=== PATIENT | female | born 1945 | race Caucasian/White ===

== ENCOUNTER 2017-02-19 21:26 | Observation (INO) | payer MEDICARE ==
[2017-02-19 21:27] VITALS: BMI 25.4
[2017-02-19] MEDS ORDERED: Sodium Chloride 0.9% 1,000 ML IV ONE (22:04)
--- NOTE | 2017-02-19 22:04 | C.PDOC ---
History Of Present Illness Patient presents with right sided chest wall pain and elevated blood sugar after eating dinner around 8pm. No f/c/v/v Also complaining of a dull throbbing headache Time Seen by Provider: 02/19/17 22:03 Chief Complaint (Nursing): High Blood Sugar History Per: Patient History/Exam Limitations: no limitations Onset/Duration Of Symptoms: Days Current Symptoms Are (Timing): Still Present Severity: Moderate Pain Scale Rating Of: 4 Current Diabetic Medications: Oral Medication Causative (Exacerbating) Factor(s): Other Associated Infectious Symptoms: Other (headache). denies: Cough, Urinary Frequency, Vomiting Treatment Prior To Provider Evaluation: None Recent travel outside of the [place]: No Additional History Per: Patient Past Medical History Reviewed: Historical Data, Nursing Documentation, Vital Signs Vital Signs: Last Vital Signs Temp 98.2 F 02/19/17 21:38 Pulse 71 02/20/17 02:07 Resp 20 02/20/17 02:07 BP 139/59 L 02/20/17 02:07 Pulse Ox 100 02/20/17 02:07 - Medical History PMH: HTN, Hypercholesterolemia Denies: Chronic Kidney Disease Family History: States: No Known Family Hx - Social History Hx Alcohol Use: No Hx Substance Use: No - Immunization History Hx Influenza Vaccination: Yes Hx Pneumococcal Vaccination: Yes Review Of Systems Constitutional: Positive for: Malaise. Negative for: Fever, Chills Eyes: Negative for: Redness ENT: Negative for: Throat Pain Cardiovascular: Positive for: Other (right chest wall pain, reproducible) Respiratory: Negative for: Shortness of Breath Gastrointestinal: Negative for: Nausea, Vomiting, Abdominal Pain Genitourinary: Negative for: Dysuria Musculoskeletal: Negative for: Back Pain Skin: Negative for: Rash, Lesions, Jaundice Neurological: Negative for: Weakness Psych: Negative for: Anxiety Physical Exam - Physical Exam Skin: Warm, Dry Head: Atraumatic Eye(s): bilateral: Normal Inspection Oral Mucosa: Dry Neck: Supple Chest: Symmetrical, Tenderness (right sided, reproducible, chest wall pain) Cardiovascular: Rhythm Regular Respiratory: No Rales, No Rhonchi, No Wheezing Gastrointestinal/Abdominal: Soft, No Tenderness, No Distention Back: Normal Inspection Extremity: Normal ROM Extremity: Bilateral: Atraumatic, Normal Color And Temperature Neurological/Psych: Oriented x3, Normal Speech, Normal Cognition Gait: Steady ED Course And Treatment - Laboratory Results Result Diagrams: 02/19/17 22:58 02/20/17 04:21 ECG: Interpreted By Me, Viewed By Me ECG Rhythm: Sinus Rhythm O2 Sat by Pulse Oximetry: 98 Pulse Ox Interpretation: Normal - Radiology CXR: Interpreted by Me, Viewed By Me CXR Interpretation: Yes: Infiltrates (left ligular area), Other (unchanged from 12/10/16). No: Fracture, Pnemothorax Progress Note: blood work, ivf Disposition Discussed With .: Jennifer Rizzo Comment: accepted the pt on his service and took over the care at 5:31AM Counseled Patient/Family Regarding: Studies Performed, Diagnosis - Disposition Disposition: HOSPITALIZED Disposition Time: 22:04 Condition: FAIR - POA Present On Arrival: Poor Glycemic Control - Clinical Impression Clinical Impression: Hyperglycemia, Diabetic nephropathy Decision To Admit - Pt Status Changed To: Hospital Disposition Of: Observation - . Bed Request Type: Regular Admitting Physician: Jennifer Rizzo Patient Diagnosis: Hyperglycemia, Diabetic nephropathy
--- NOTE | 2017-02-19 22:47 | CT ---
EXAM: CT Head Without Intravenous Contrast CLINICAL HISTORY: 71 years old, female; Condition or disease; Headache TECHNIQUE: Axial computed tomography images of the head/brain without intravenous contrast. This CT exam was performed using one or more of the following dose reduction techniques: automated exposure control, adjustment of the mA and/or kV according to patient size, and/or use of iterative reconstruction technique. COMPARISON: CT - HEAD W/O CONTRAST 12/10/2016 2:19:15 AM FINDINGS: Artifacts: There is mild motion artifact which slightly limits evaluation. Brain: There is mild prominence of ventricles and sulci, compatible with mild atrophy. There is mild diminished density of the white matter bilaterally, consistent with mild microangiopathy. There is no evidence of intracranial hemorrhage. No evidence of acute territorial infarction. No edema. Ventricles: See above. Bones/joints: Unremarkable. No acute fracture. Soft tissues: Unremarkable. Sinuses: Unremarkable as visualized. No acute sinusitis. Mastoid air cells: Unremarkable as visualized. No mastoid effusion. IMPRESSION: 1. No evidence for acute intracranial abnormality or displaced calvarial fracture. 2. Additional incidental and/or chronic findings as described.
[2017-02-19 23:00] LABS: BASO # 0.1 K/uL (0.0-0.2); BASO % 0.7 % (0.0-2.0); EOS # 0.2 K/uL (0.0-0.7); EOS % 1.8 % (0.0-4.0); HEMATOCRIT 31.3 % (34.0-47.0); LYMPH # 1.3 K/uL (1.0-4.3); MEAN CELL VOLUME 87.6 fL (81.0-99.0); MEAN CORPUSCULAR HEMOGLOBIN 28.5 pg (27.0-31.0); MEAN CORPUSCULAR HGB CONC 32.5 g/dL (33.0-37.0); MEAN PLATELET VOLUME 9.8 fL (7.2-11.7); MONO # 0.7 K/uL (0.0-0.8); MONO % 6.3 % (0.0-10.0); RED CELL DISTRIBUTION WIDTH 12.8 % (11.5-14.5); WHITE BLOOD COUNT 10.9 K/uL (4.8-10.8)
[2017-02-19 23:05] LABS: VENOUS BLOOD GAS BASE EXCESS -4.8 mmol/L (0.0-2.0); VENOUS BLOOD GAS PCO2 44 mmHg (40-60)
[2017-02-19 23:09] LABS: CHLORIDE 101 mmol/L (98-107); POTASSIUM 5.1 mmol/L (3.6-5.2); SODIUM 134 mmol/L (132-148)
[2017-02-19 23:11] LABS: BILIRUBIN,TOTAL 0.8 mg/dL (0.2-1.3); CARBON DIOXIDE 19 mmol/L (22-30); GFR AFRICAN-AMERICAN 32
[2017-02-19 23:12] LABS: ALKALINE PHOSPHATASE 81 U/L (38-126); ALT/SGPT 31 U/L (9-52); AST/SGOT 48 U/L (14-36); BLOOD UREA NITROGEN 36 mg/dL (7-17); CALCIUM 8.2 mg/dl (8.6-10.4); TOTAL PROTEIN 7.8 g/dL (6.3-8.3)
[2017-02-19 23:26] LABS: TRANSITIONAL EPITHIAL < 1 /hpf (0-3); URINE BACTERIA RARE (<OCC); URINE BILIRUBIN NEGATIVE (NEGATIVE); URINE BLOOD NEGATIVE (NEGATIVE); URINE COLOR Straw (YELLOW); URINE GLUCOSE (UA) 3+ mg/dL (Normal); URINE KETONE NEGATIVE (NEGATIVE); URINE LEUKOCYTE ESTERASE NEG Leu/uL (Negative); URINE PROTEIN NEGATIVE (NEGATIVE); URINE UROBILINOGEN NORMAL mg/dL (0.2-1.0); WBC URINE < 1 /hpf (0-5)
[2017-02-19 23:27] LABS: GLUCOSE,RANDOM 597 mg/dL (65-105)
[2017-02-20] MEDS: Insulin Human Regular 100 UNIT in Sodium Chloride 0.9% 99 ML IV SCH ×2 (00:12→19:58)
[2017-02-20 02:07] VITALS: RESP 20
[2017-02-20] MEDS ORDERED: Sodium Chloride 0.9% 1,000 ML IV ONE (02:11)
[2017-02-20] MEDS ORDERED: (Novolin R) Insulin Human Regular 100 units/ml vial IV ONE ×2 (04:29→05:01)
[2017-02-20] MEDS ORDERED: (Novolin R) Insulin Human Regular 100 units/ml vial ONE (04:29)
[2017-02-20 04:32] LABS: POTASSIUM 4.5 mmol/L (3.6-5.2)
[2017-02-20 04:35] LABS: ALB/GLOB RATIO 0.9 (1.0-2.1); BILIRUBIN,TOTAL 0.9 mg/dL (0.2-1.3); TOTAL PROTEIN 6.4 g/dL (6.3-8.3)
[2017-02-20 04:36] LABS: CALCIUM 6.5 mg/dl (8.6-10.4)
[2017-02-20] MEDS: (Novolin R) Insulin Human Regular 100 units/ml vial SC SCH ×4 (08:20→22:18)
--- NOTE | 2017-02-20 09:07 | RAD ---
HISTORY: Diabetic COMPARISON: Chest x-ray performed 12/10/16 TECHNIQUE: Chest, one view. FINDINGS: LUNGS: Interstitial prominence may reflect infection or edema superimposed on chronic interstitial changes. Please note that chest x-ray has limited sensitivity for the detection of pulmonary masses. PLEURA: Trace bilateral pleural effusions. No definite pneumothorax . CARDIOVASCULAR: Cardiomegaly. OSSEOUS STRUCTURES: Degenerative changes. VISUALIZED UPPER ABDOMEN: Unremarkable. OTHER FINDINGS: None. IMPRESSION: Interstitial prominence may reflect infection or edema superimposed on chronic interstitial changes. Trace bilateral pleural effusions. Cardiomegaly.
[2017-02-20] MEDS ORDERED: (Lantus) Insulin Glargine, Recombinant SC SCH (10:00)
[2017-02-20 12:16] LABS: AMYLASE 106 U/L (30-110); CHOLESTEROL 95 mg/dL (0-199)
[2017-02-20 12:52] LABS: THYROID STIMULATING HORMONE 1.59 mIU/L (0.46-4.68)
--- NOTE | 2017-02-20 16:58 | CP.PCM.HP ---
History of Present Illness - History of Present Illness History of Present Illness: A 71 year old female with diabetes came to ER for right side chest wall pain and extreme general weakness. Her glucose was over 600 at ER. She had an intravenous insulin drip. She was admitted for further diabetic care for uncontrolled diabetes. She denies headache, abdominal pain,nausea, vomiting, cough, diarrhea, dysuria, fever or chills Present on Admission - Present on Admission Any Indicators Present on Admission: No History of DVT/PE: No History of Uncontrolled Diabetes: Yes Urinary Catheter: No Decubitus Ulcer Present: No Review of Systems - Constitutional Constitutional: As Per HPI, Headache - EENT Eyes: As Per HPI Ears: As Per HPI Nose/Mouth/Throat: As Per HPI - Breasts Breasts: As Per HPI - Cardiovascular Cardiovascular: As Per HPI - Respiratory Respiratory: As Per HPI - Gastrointestinal Gastrointestinal: As Per HPI - Genitourinary Genitourinary: As Per HPI - Reproductive: Female Reproductive:Female: As Per HPI - Menstruation Menstruation: As Per HPI, Cycle Variable - Musculoskeletal Musculoskeletal: As Per HPI - Neurological Neurological: As Per HPI Past Patient History - Infectious Disease Hx of Infectious Diseases: None - Past Medical History & Family History Past Medical History?: Yes - Past Social History Smoking Status: Never Smoked - CARDIAC Hx Cardiac Disorders: Yes Hx Angina: No Hx Atrial Fibrillation: No Hx Cardia Arrhythmia: No Hx Circulatory Problems: No Hx Congestive Heart Failure: No Hx Hypercholesterolemia: Yes Hx Hypertension: Yes - PULMONARY Hx Respiratory Disorders: No - NEUROLOGICAL HX Cerebrovascular Accident: Yes (2016) - HEENT Hx HEENT Problems: No - RENAL Hx Chronic Kidney Disease: No - ENDOCRINE/METABOLIC Hx Endocrine Disorders: Yes Hx Diabetes Mellitus Type 2: Yes - HEMATOLOGICAL/ONCOLOGICAL Hx Blood Disorders: No - INTEGUMENTARY Hx Dermatological Problems: No - MUSCULOSKELETAL/RHEUMATOLOGICAL Hx Falls: No - GASTROINTESTINAL Hx Gastrointestinal Disorders: No - GENITOURINARY/GYNECOLOGICAL Hx Genitourinary Disorders: No - PSYCHIATRIC Hx Substance Use: No - SURGICAL HISTORY Hx Surgeries: Yes Hx Section: Yes Other/Comment: Lung biopsy - ANESTHESIA Hx Anesthesia: Yes Hx Anesthesia Reactions: No Hx Malignant Hyperthermia: No Has any member of the family had a problem w/ anesthesia?: No Meds Allergies/Adverse Reactions: Allergies Allergy/AdvReac Type Severity Reaction Status Date / Time No Known Allergies Allergy Verified 02/19/17 21:42 Physical Exam - Constitutional Appears: No Acute Distress - Head Exam Head Exam: ATRAUMATIC, NORMAL INSPECTION, NORMOCEPHALIC - Respiratory Exam Respiratory Exam: Rales, NORMAL BREATHING PATTERN - Cardiovascular Exam Cardiovascular Exam: REGULAR RHYTHM, +S1, +S2, Systolic Murmur - GI/Abdominal Exam GI & Abdominal Exam: Normal Bowel Sounds - Extremities Exam Extremities exam: Positive for: normal inspection Results - Vital Signs Recent Vital Signs: Last Vital Signs Temp 98.5 F 02/20/17 15:47 Pulse 90 02/20/17 15:47 Resp 20 02/20/17 15:47 BP 123/57 L 02/20/17 15:47 Pulse Ox 98 02/20/17 15:47 - Labs Result Diagrams: 02/19/17 22:58 02/20/17 04:21 Labs: Laboratory Results - last 24 hr 02/20/17 02/20/17 02/20/17 06:51 07:17 11:19 POC Glucose (mg/dL) 40 L 82 233 H Triglycerides Cholesterol LDL Cholesterol Direct HDL Cholesterol Amylase TSH 3rd Generation 02/20/17 02/20/17 11:55 15:36 POC Glucose (mg/dL) 329 H Triglycerides 75 D Cholesterol 95 LDL Cholesterol Direct < 30 HDL Cholesterol 64 Amylase 106 TSH 3rd Generation 1.59 Assessment & Plan - Assessment and Plan (Free Text) Assessment: A 71 year old female with history of interstitial lung disease and diabetes came for right chest wall pain and general weakness. not likely DKA, not likely hyperosmolar nonketoic coma, Uncontrolled and brittle diabetes Plan: diabetic care she had insulin intravenous drip at ER hypoglycemia this morning held lantus insulin continue insulin sliding scale frequent previous admissions - Date & Time Date: 02/20/17 Time: 16:59 Decision To Admit - Pt Status Changed To: Hospital Disposition Of: Inpatient - Admit Certification Admit to Inpatient:: After my assessment, the patient will require hospitalization for at least two midnights. This is because of the severity of symptoms shown, intensity of services needed, and/or the medical risk in this patient being treated as an outpatient. - InPatient: Physician Admission Certification:: as ordered - . Bed Request Type: Regular Admitting Physician: Jennifer Rizzo
[2017-02-20] MEDS ORDERED: Sodium Chloride 0.9% 1,000 ML IV SCH (17:00)
[2017-02-21] MEDS: (Novolin R) Insulin Human Regular 100 units/ml vial SC SCH ×2 (07:55→12:05)
[2017-02-21] MEDS ORDERED: (Lantus) Insulin Glargine, Recombinant SC ONE (11:29)
--- NOTE | 2017-02-21 12:19 | CP.PCM.PN ---
Subjective - Date & Time of Evaluation Date of Evaluation: 02/21/17 Time of Evaluation: 12:16 - Subjective Subjective: feels tired mild headache no nausea, no cough, no abdominal pain high finger stick sugar this morning, 307 at 4 AM and 443 at 8 AM no more chest pain Objective - Vital Signs/Intake and Output Vital Signs (last 24 hours): Temp Pulse Resp BP Pulse Ox 97.8 F 80 20 138/65 93 L 02/21/17 08:04 02/21/17 08:04 02/21/17 08:04 02/21/17 08:04 02/21/17 08:04 Intake and Output: 02/21/17 02/21/17 06:59 18:59 Intake Total 500 Balance 500 - Medications Medications: Current Medications Acetaminophen (Tylenol 325mg Tab) 650 mg PO Q6 PRN PRN Reason: Pain, moderate (4-7) Aspirin (Aspirin Chewable) 81 mg PO DAILY [facility] Last Admin: 02/21/17 09:58 Dose: 81 mg Gabapentin (Neurontin) 200 mg PO DAILY [facility] Last Admin: 02/21/17 09:58 Dose: 200 mg Heparin Sodium (Porcine) (Heparin) 5,000 units SC Q12 [facility] Last Admin: 02/21/17 09:58 Dose: 5,000 units Insulin Glargine (Lantus) 10 unit SC BID [facility] Last Admin: 02/20/17 09:14 Dose: Not Given Insulin Human Regular (Novolin R) 0 unit SC ACHS [facility] PRN Reason: Protocol Last Admin: 02/21/17 12:05 Dose: 10 unit Lisinopril (Zestril) 20 mg PO DAILY [facility] Last Admin: 02/21/17 09:58 Dose: 20 mg Rosuvastatin Calcium (Crestor) 20 mg PO HS [facility] Last Admin: 02/20/17 22:15 Dose: 20 mg - Constitutional Appears: No Acute Distress - Respiratory Exam Respiratory Exam: Clear to Ausculation Bilateral, NORMAL BREATHING PATTERN - Cardiovascular Exam Cardiovascular Exam: REGULAR RHYTHM, +S1, +S2 - GI/Abdominal Exam GI & Abdominal Exam: Normal Bowel Sounds - Extremities Exam Extremities Exam: Normal Inspection Assessment and Plan - Assessment and Plan (Free Text) Assessment: uncontrolled diabetes stable vitals came with right side chest pain patient is on observation status now poor family support at home because her daughter is too busy for belt maker helper history of interstitial lung disease Plan: resume lantus insulin discharge pt home follow up as an out patient talked to her daughter on the phone She said that she had called 911 because her mother had right side chest pain. she refused a blood test this morning.
[2017-02-21 15:12] VITALS: BP 135/74; PULSE 79; TEMP 98; O2SAT 95
--- NOTE | 2017-02-24 08:55 | CARD ---
APPROVED REPORT EKG Measurement Heart [id number] <Conclusion> Sinus rhythm with 1st degree AV block Possible Left atrial enlargement Nonspecific T wave abnormality lOW VOLTAGE INFERIOR AND LATERAL LEADS Abnormal ECG
== END 2017-02-21 16:49 | disposition home or self-care (01) ==
LOC: C.ER 21:26 → C.5T 02-20 05:41
PROVIDERS: ADMIT Internal Medicine; ATTEND Internal Medicine
DX: E11.65 Type 2 diabetes mellitus with hyperglycemia (principal); E78.00 Pure hypercholesterolemia, unspecified; I10 Essential (primary) hypertension; Z79.4 Long term (current) use of insulin
CPT/HCPCS: 36415; 70450; 71010; 80053; 80061; 81001; 82009; 82150; 82803; 82948; 83036; 83690; 84443; 84484; 85025; 96360; 97116; 97162; 99285; G0378; G8978; G8979; J1644; J7040

== ENCOUNTER 2017-04-04 19:57 | Inpatient (IN) | payer MEDICARE ==
[2017-04-04 19:58] VITALS: BMI 25.4
[2017-04-04] MEDS ORDERED: Sodium Chloride 0.9% 1,000 ML IV STA (20:39)
--- NOTE | 2017-04-04 20:48 | C.PDOC ---
History Of Present Illness 72 year old female was brought to the ED by EMS with complaints of generalized weakness and loss of appetite for approximately five to six days. Patient's family member notes the patient has had fluctuating blood sugar finger stick readings. Patient denies any chest pain, SOB, cough, dysuria, or pain. PMD So Time Seen by Provider: 04/04/17 20:12 Chief Complaint (Nursing): Medical Clearance History Per: Patient, Family History/Exam Limitations: no limitations Onset/Duration Of Symptoms: Days (5-6 days ) Current Symptoms Are (Timing): Still Present Reports Recently: Hospitalized (patient's family member states patient has been in the hospital about 5 times in the last month) Recent travel outside of the [place]: No Additional History Per: EMS Past Medical History Reviewed: Historical Data, Nursing Documentation, Vital Signs Vital Signs: Last Vital Signs Temp 98.2 F 04/04/17 23:45 Pulse 97 H 04/04/17 23:45 Resp 20 04/04/17 23:45 BP 127/70 04/04/17 23:45 Pulse Ox 97 04/04/17 23:45 - Medical History PMH: HTN, Hypercholesterolemia Family History: States: Unknown Family Hx - Social History Hx Alcohol Use: No Hx Substance Use: No - Immunization History Hx Influenza Vaccination: Yes Hx Pneumococcal Vaccination: Yes Review Of Systems Constitutional: Positive for: Weakness (generalized weakness ), Other (loss of appetite ). Negative for: Fever, Chills, Sweats Cardiovascular: Negative for: Chest Pain, Palpitations Respiratory: Negative for: Cough, Shortness of Breath Gastrointestinal: Negative for: Nausea, Vomiting, Abdominal Pain, Diarrhea Genitourinary: Negative for: Dysuria Physical Exam - Physical Exam Additional Physical Exam Comments: Constitutional: No acute distress. Head: Normocephalic. Atraumatic. Eyes: PERRL. ENT: Moist mucous membranes. Neck: Supple. Cardiovascular: Regular rate. Radial pulse 2+ bilaterally. Chest: No tenderness. Respiratory: Clear to auscultation bilaterally. GI: Soft. Nontender. Nondistended. Back: No CVA tenderness. Musculoskeletal: No tenderness or swelling of extremities. Skin: No rash. Neurologic: Alert, no focal deficit. ED Course And Treatment - Laboratory Results Result Diagrams: 04/04/17 20:48 04/04/17 20:48 O2 Sat by Pulse Oximetry: 97 (room air ) Medical Decision Making Medical Decision Making: Patient found to be hyperkalemic 6.1 with acute renal insuficiency. EKG checked STAT which shows 1st degree AV block, no peaked T waves. Narrow QRS. Patient's last two EKGs both checked, both times with 1st degree AV block, not hyperkalemic at those times. Will treat with cocktail, no indication for calcium at this time. Disposition - Disposition Disposition: HOSPITALIZED Disposition Time: 21:30 Condition: FAIR - Clinical Impression Clinical Impression: Acute renal insufficiency, Hyperkalemia - Scribe Statement The provider has reviewed the documentation as recorded by the Scribe Provider Attestation: Arabella Ames All medical record entries made by the Scribe were at my direction and personally dictated by me. I have reviewed the chart and agree that the record accurately reflects my personal performance of the history, physical exam, medical decision making, and the department course for this patient. I have also personally directed, reviewed, and agree with the discharge instructions and disposition.
[2017-04-04 20:53] LABS: BASO % 0.4 % (0.0-2.0); EOS # 0.3 K/uL (0.0-0.7); EOS % 3.7 % (0.0-4.0); HEMATOCRIT 34.9 % (34.0-47.0); LYMPH # 2.3 K/uL (1.0-4.3); LYMPH % 24.8 % (20.0-40.0); MEAN CORPUSCULAR HEMOGLOBIN 27.1 pg (27.0-31.0); MEAN CORPUSCULAR HGB CONC 31.7 g/dL (33.0-37.0); MEAN PLATELET VOLUME 10.1 fL (7.2-11.7); MONO # 0.6 K/uL (0.0-0.8); MONO % 6.8 % (0.0-10.0); RED CELL DISTRIBUTION WIDTH 13.2 % (11.5-14.5); WHITE BLOOD COUNT 9.4 K/uL (4.8-10.8)
[2017-04-04 20:55] LABS: MEAN CELL VOLUME 85.4 fL (81.0-99.0)
[2017-04-04 21:03] LABS: CHLORIDE 107 mmol/L (98-107); SODIUM 140 mmol/L (132-148)
[2017-04-04 21:05] LABS: ALKALINE PHOSPHATASE 92 U/L (38-126); AST/SGOT 30 U/L (14-36); BILIRUBIN,TOTAL 0.4 mg/dL (0.2-1.3); CARBON DIOXIDE 21 mmol/L (22-30); GFR AFRICAN-AMERICAN 16
[2017-04-04 21:06] LABS: ALT/SGPT 17 U/L (9-52); BLOOD UREA NITROGEN 64 mg/dL (7-17); GLUCOSE,RANDOM 168 mg/dL (65-105); TOTAL PROTEIN 7.8 g/dL (6.3-8.3)
[2017-04-04 21:08] LABS: POTASSIUM 6.2 mmol/L (3.6-5.2)
[2017-04-04 21:10] LABS: URINE BILIRUBIN NEGATIVE (NEGATIVE); URINE BLOOD NEGATIVE (NEGATIVE); URINE COLOR YELLOW (YELLOW); URINE GLUCOSE (UA) 1+ mg/dL (Normal); URINE KETONE NEGATIVE (NEGATIVE)
[2017-04-04 21:11] LABS: RBC URINE 2 /hpf (0-3); URINE LEUKOCYTE ESTERASE 1+ Leu/uL (Negative); URINE PROTEIN NEGATIVE (NEGATIVE); URINE UROBILINOGEN Normal mg/dL (0.2-1.0); WBC URINE 24 /hpf (0-5)
[2017-04-04] MEDS ORDERED: Albuterol 0.083% Inhal Sol (2.5 mg/3 mL) UD INH STA (21:13)
[2017-04-04] MEDS ORDERED: Sodium Bicarbonate (8.4%) 50 Meq Syringe IVP ONE (21:14)
[2017-04-04] MEDS ORDERED: (Novolin R) Insulin Human Regular 100 units/ml vial IV ONE (21:14)
[2017-04-04] MEDS ORDERED: Dextrose 50% SYRINGE Inj (50 ml) IV STA (21:14)
[2017-04-04 21:16] LABS: DRAW SITE VENOUS; VENOUS BLOOD GAS BASE EXCESS -2.3 mmol/L (0.0-2.0); VENOUS BLOOD GAS PCO2 52 mmHg (40-60); VENOUS BLOOD PH 7.29 (7.32-7.43)
[2017-04-04] MEDS ORDERED: Dextrose 50% SYRINGE Inj (50 ml) ONE (21:30)
[2017-04-04] MEDS ORDERED: (Novolin R) Insulin Human Regular 100 units/ml vial ONE (21:30)
[2017-04-04] MEDS ORDERED: Sodium Chloride 0.9% 1,000 ML ONE (21:31)
[2017-04-04] MEDS ORDERED: Sodium Bicarbonate (8.4%) 50 Meq Syringe ONE (21:31)
[2017-04-04] MEDS ORDERED: Albuterol 0.083% Inhal Sol (2.5 mg/3 mL) UD ONE (21:41)
[2017-04-04] MEDS ORDERED: Ciprofloxacin 400mg/200ml D5W 400 MG/200 ML BAG IVPB STA (22:41)
[2017-04-04] MEDS: Sodium Chloride 0.9% 1,000 ML IV SCH (23:45)
[2017-04-05 08:00] LABS: HEMATOCRIT 33.8 % (34.0-47.0); MEAN CELL VOLUME 84.8 fL (81.0-99.0); MEAN CORPUSCULAR HEMOGLOBIN 27.5 pg (27.0-31.0); MEAN CORPUSCULAR HGB CONC 32.4 g/dL (33.0-37.0); MEAN PLATELET VOLUME 9.7 fL (7.2-11.7); RED CELL DISTRIBUTION WIDTH 13.2 % (11.5-14.5); WHITE BLOOD COUNT 11.6 K/uL (4.8-10.8)
[2017-04-05 08:04] LABS: POTASSIUM 4.8 mmol/L (3.6-5.2)
[2017-04-05 08:06] LABS: BILIRUBIN,TOTAL 0.5 mg/dL (0.2-1.3); CALCIUM 8.9 mg/dl (8.6-10.4); TOTAL PROTEIN 7.5 g/dL (6.3-8.3)
[2017-04-05] MEDS: (Novolog) Insulin Aspart, Recombinant 100 u/ml 10 ml vial SC SCH ×4 (08:15→22:01)
--- NOTE | 2017-04-05 08:23 | CP.PCM.HP ---
History of Present Illness - History of Present Illness History of Present Illness: A 72 year old female, well known to me with a history of diabetes, interstitial lung fibrosis came to ER on 04/04/17 for general weakness and decreased appetite for about five days. Reportedly, her glucose at home fluctuates lately. There was no shortness of breath, fever, chills, or chest pain or diarrhea. At the ER, she was found to have high creatinine and high potassium. DKA was ruled out. She was given iv cipro, iv bicarbonate and insulin. Present on Admission - Present on Admission Any Indicators Present on Admission: No History of DVT/PE: No History of Uncontrolled Diabetes: Yes Urinary Catheter: No Decubitus Ulcer Present: No Review of Systems - Constitutional Constitutional: Anorexia, Lethargy, Malaise - Cardiovascular Cardiovascular: As Per HPI - Respiratory Respiratory: As Per HPI - Genitourinary Genitourinary: As Per HPI Past Patient History - Infectious Disease Hx of Infectious Diseases: None - Past Medical History & Family History Past Medical History?: Yes - Past Social History Smoking Status: Never Smoked - CARDIAC Hx Cardiac Disorders: Yes Hx Hypercholesterolemia: Yes Hx Hypertension: Yes - PULMONARY Hx Respiratory Disorders: No - NEUROLOGICAL Hx Neurological Disorder: Yes HX Cerebrovascular Accident: Yes (2016) - HEENT Hx HEENT Problems: No - RENAL Hx Chronic Kidney Disease: No - ENDOCRINE/METABOLIC Hx Endocrine Disorders: Yes Hx Diabetes Mellitus Type 2: Yes - HEMATOLOGICAL/ONCOLOGICAL Hx Blood Disorders: No - INTEGUMENTARY Hx Dermatological Problems: No - MUSCULOSKELETAL/RHEUMATOLOGICAL Hx Musculoskeletal Disorders: No Hx Falls: No - GASTROINTESTINAL Hx Gastrointestinal Disorders: No - GENITOURINARY/GYNECOLOGICAL Hx Genitourinary Disorders: No - PSYCHIATRIC Hx Psychophysiologic Disorder: No Hx Substance Use: No - SURGICAL HISTORY Hx Surgeries: Yes Hx Section: Yes Other/Comment: Lung biopsy - ANESTHESIA Hx Anesthesia: Yes Hx Anesthesia Reactions: No Hx Malignant Hyperthermia: No Meds Allergies/Adverse Reactions: Allergies Allergy/AdvReac Type Severity Reaction Status Date / Time No Known Allergies Allergy Verified 04/04/17 20:07 Physical Exam - Constitutional Appears: No Acute Distress - Head Exam Head Exam: ATRAUMATIC - Neck Exam Neck exam: Positive for: Full Rom - Respiratory Exam Respiratory Exam: Rales (fine crackles at right base), NORMAL BREATHING PATTERN - Cardiovascular Exam Cardiovascular Exam: REGULAR RHYTHM - GI/Abdominal Exam GI & Abdominal Exam: Normal Bowel Sounds, Soft - Extremities Exam Extremities exam: Positive for: normal inspection Results - Vital Signs Recent Vital Signs: Last Vital Signs Temp 97.8 F 04/05/17 04:00 Pulse 92 H 04/05/17 04:13 Resp 20 04/05/17 04:00 BP 126/65 04/05/17 04:00 Pulse Ox 98 04/05/17 04:00 - Labs Result Diagrams: 04/05/17 07:48 04/05/17 07:48 Labs: Laboratory Results - last 24 hr 04/05/17 04/05/17 04/05/17 02:19 06:07 07:48 WBC 11.6 H RBC 3.98 Hgb 11.0 Hct 33.8 L MCV 84.8 MCH 27.5 MCHC 32.4 L RDW 13.2 Plt Count 209 MPV 9.7 Sodium Potassium Chloride Carbon Dioxide Anion Gap BUN Creatinine Est GFR ( Amer) Est GFR (Non-Af Amer) POC Glucose (mg/dL) 260 H 221 H Random Glucose Calcium Total Bilirubin AST ALT Alkaline Phosphatase Total Protein Albumin Globulin Albumin/Globulin Ratio 04/05/17 07:48 WBC RBC Hgb Hct MCV MCH MCHC RDW Plt Count MPV Sodium 143 Potassium 4.8 Chloride 108 H Carbon Dioxide 23 Anion Gap 17 BUN 49 H Creatinine 2.6 H Est GFR ( Amer) 22 Est GFR (Non-Af Amer) 18 POC Glucose (mg/dL) Random Glucose 168 H Calcium 8.9 Total Bilirubin 0.5 AST 30 ALT 12 Alkaline Phosphatase 92 Total Protein 7.5 Albumin 3.8 Globulin 3.7 Albumin/Globulin Ratio 1.0 Assessment & Plan - Assessment and Plan (Free Text) Assessment: acute renal insufficiency with hyperkalemia uncontrolled diabetes R/O urinary tract infection Plan: iv hydration control diabetes with a sliding scale follow up kidney function continue iv antibiotics until cleared - Date & Time Date: 04/05/17 Time: 08:26
[2017-04-05] MEDS ORDERED: (Lantus) Insulin Glargine, Recombinant SC SCH (10:00)
--- NOTE | 2017-04-05 10:25 | RAD ---
HISTORY: weakness COMPARISON: No prior. FINDINGS: LUNGS: Prominent diffuse increased interstitial lung markings with patchy increased consolidative changes the left mid to lower lung zone as well as the right upper to mid lung zone. PLEURA: As above. CARDIOVASCULAR: Cardiomegaly. OSSEOUS STRUCTURES: No significant abnormalities. VISUALIZED UPPER ABDOMEN: Normal. OTHER FINDINGS: None. IMPRESSION: Prominent diffuse increased interstitial lung markings with patchy increased consolidative changes the left mid to lower lung zone as well as the right upper to mid lung zone.
--- NOTE | 2017-04-05 18:27 | CARD ---
APPROVED REPORT EKG Measurement Heart [id number] <Conclusion> Sinus rhythm with 1st degree AV block Otherwise normal ECG
[2017-04-05] MEDS: (Lantus) Insulin Glargine, Recombinant SC SCH (21:57)
[2017-04-06] MEDS: Sodium Chloride 0.9% 1,000 ML IV SCH ×2 (00:03→12:43)
--- NOTE | 2017-04-06 00:07 | CT ---
EXAM: CT Head Without Intravenous Contrast CLINICAL HISTORY: 72 years old, female; Signs and symptoms; Altered mental status/memory loss; Additional info: AMS TECHNIQUE: Axial computed tomography images of the head/brain without intravenous contrast. This CT exam was performed using one or more of the following dose reduction techniques: automated exposure control, adjustment of the mA and/or kV according to patient size, and/or use of iterative reconstruction technique. EXAM DATE/TIME: 04/05/2017 6:29 PM COMPARISON: CT - HEAD W/O CONTRAST 02/19/2017 10:29:34 PM FINDINGS: Brain: There is dilatation of sulci gyri and ventricles. There is no midline shift. There is decreased attenuation in periventricular white matter. There are no focal masses. There are no focal hemorrhages. Salazar-white differentiation is visualized. Ventricles: See above. Bones: Cranial vault is intact. Soft tissues: unremarkable Sinuses: There is no acute sinusitis. Ears and mastoids: Middle ears and mastoids are unremarkable. Orbits: Orbital contents are unremarkable. IMPRESSION: Atrophy and small vessel disease, no acute intracranial abnormality
[2017-04-06] MEDS: (Novolog) Insulin Aspart, Recombinant 100 u/ml 10 ml vial SC SCH ×4 (07:45→21:43)
[2017-04-06 08:29] LABS: BASO # 0.1 K/uL (0.0-0.2); BASO % 0.7 % (0.0-2.0); EOS # 0.6 K/uL (0.0-0.7); EOS % 5.3 % (0.0-4.0); HEMATOCRIT 34.7 % (34.0-47.0); LYMPH # 3.6 K/uL (1.0-4.3); LYMPH % 33.8 % (20.0-40.0); MEAN CELL VOLUME 84.5 fL (81.0-99.0); MEAN CORPUSCULAR HEMOGLOBIN 27.4 pg (27.0-31.0); MEAN CORPUSCULAR HGB CONC 32.4 g/dL (33.0-37.0); MEAN PLATELET VOLUME 9.6 fL (7.2-11.7); MONO # 0.9 K/uL (0.0-0.8); MONO % 8.8 % (0.0-10.0); RED CELL DISTRIBUTION WIDTH 13.2 % (11.5-14.5); WHITE BLOOD COUNT 10.8 K/uL (4.8-10.8)
--- NOTE | 2017-04-06 08:42 | CP.PCM.PN ---
Subjective - Date & Time of Evaluation Date of Evaluation: 04/06/17 Time of Evaluation: 08:39 - Subjective Subjective: chest pain she was confused yesterday. She pulled out iv yesterday. Objective - Vital Signs/Intake and Output Vital Signs (last 24 hours): Temp Pulse Resp BP Pulse Ox 98.2 F 87 18 145/68 99 04/06/17 07:00 04/06/17 07:00 04/06/17 07:00 04/06/17 07:00 04/06/17 07:00 Intake and Output: 04/06/17 04/06/17 06:59 18:59 Intake Total 840 Balance 840 - Medications Medications: Current Medications Acetaminophen (Tylenol 325mg Tab) 650 mg PO Q6 PRN PRN Reason: pain Aspirin (Aspirin Chewable) 81 mg PO DAILY [facility] Last Admin: 04/05/17 09:35 Dose: 81 mg Haloperidol Lactate (Haldol) 1 mg IM Q4 PRN PRN Reason: Agitation Last Admin: 04/05/17 19:27 Dose: 1 mg Heparin Sodium (Porcine) (Heparin) 5,000 units SC Q8 [facility] Last Admin: 04/06/17 05:46 Dose: 5,000 units Sodium Chloride (Sodium Chloride 0.9%) 1,000 mls @ 80 mls/hr IV .[id number] [facility] Last Admin: 04/06/17 00:03 Dose: 80 mls/hr Ciprofloxacin (Cipro 400mg/200ml Dsw) 400 mg in 200 mls @ 133 mls/hr IVPB Q24H [facility] Insulin Aspart (Novolog) 0 unit SC ACHS [facility] PRN Reason: Protocol Last Admin: 04/06/17 07:45 Dose: Not Given Insulin Glargine (Lantus) 20 unit SC Q12 [facility] Last Admin: 04/05/17 21:57 Dose: 20 units - Labs Labs: 04/06/17 08:23 04/05/17 07:48 PT 11.2 SECONDS (9.7-12.2) 04/04/17 20:48 INR 1.0 04/04/17 20:48 APTT 38 SECONDS (21-34) H 04/04/17 20:48 - Constitutional Appears: Non-toxic - Head Exam Head Exam: NORMAL INSPECTION - Respiratory Exam Respiratory Exam: NORMAL BREATHING PATTERN - Cardiovascular Exam Cardiovascular Exam: REGULAR RHYTHM - GI/Abdominal Exam GI & Abdominal Exam: Soft Assessment and Plan - Assessment and Plan (Free Text) Assessment: uncontrolled diabetes general weakness renal insufficiency acute vs. chronic mental confusion R/O delirium Plan: change lantus from 20 units every 24 hours to once a day. she had a hypoglycemia in the morning. neurology consult pending PT evaluation follow up labs
[2017-04-06 08:57] LABS: POTASSIUM 4.6 mmol/L (3.6-5.2)
[2017-04-06 09:01] LABS: CALCIUM 9.4 mg/dl (8.6-10.4)
[2017-04-06] MEDS: (Lantus) Insulin Glargine, Recombinant SC SCH (09:21)
[2017-04-06] MEDS: Ciprofloxacin 400mg/200ml D5W 400 MG/200 ML BAG IVPB SCH (09:23)
[2017-04-06 10:41] LABS: T4 9.97 ug/dL (5.5-11.0)
[2017-04-06 10:55] LABS: THYROID STIMULATING HORMONE 3.13 mIU/L (0.46-4.68)
--- NOTE | 2017-04-06 14:52 | CON ---
DATE: 04/06/2017 REASON FOR CONSULTATION: Confusion. HISTORY OF PRESENT ILLNESS: The patient is a 72-year-old female who was admitted with the complaint of generalized weakness and loss of appetite for 6 days. In the hospital, the patient was noted to b e very confused. She was going from room to room and she was not listening to what the staff was say ing and she was very confused. That is when neurology consultation was called. The patient said she is fine and just wants to move around. REVIEW OF SYSTEMS: Denies any headache, dizziness, chest pain, shortness of breath, abdominal pain, constipation, diarrhea, dysuria, pyuria, cough, sputum production. PAST MEDICAL HISTORY: Includes hypertension, hypercholesterolemia. MEDICATIONS: At home include Crestor, Zestril, Lantus, NovoLog, Neurontin, Lipitor and aspirin. ALLERGIES: No known drug allergies. SOCIAL HISTORY: Denies smoking, use of alcohol or illicit drugs. FAMILY HISTORY: Reviewed and noncontributory to the case. PHYSICAL EXAMINATION: GENERAL: The patient is an elderly female sitting in no acute distress. VITAL SIGNS: Her blood pressure is 145/68, heart rate is 87 per minute, breathing at a rate of 16 pe r minute, temperature is 98.2 degrees Fahrenheit. HEENT: Normocephalic, atraumatic. NECK: Supple. There are no carotid bruits. LUNGS: Clear. CARDIOVASCULAR: S1, S2 audible. No murmurs. ABDOMEN: Soft and nontender, bowel sounds present. NEUROLOGIC EXAMINATION: MENTAL STATUS: She is awake, alert. She knows she is in the hospital. She does not know the year o r the month. She follows simple commands. CRANIAL NERVES: Pupils are 3 mm bilaterally reactive to light. Visual agustin are full. Extraocular movements are intact. There is no facial asymmetry. Palate is upgoing bilaterally and tongue is mi dline. MOTOR: Tone is normal and power is 5/5 bilaterally in all extremities. Reflexes +1 and symmetrical. Plantars downgoing bilaterally. CEREBELLAR: [id number] shows no dysmetria. GAIT: Narrow based. LABORATORIES: Reviewed, shows WBC of 10.8, hemoglobin 11.3, hematocrit of 34.7 and platelets of 233. Her sodium is 143, potassium 4.8, chloride 108, carbon dioxide content of 23. BUN of 49, creatinin e of 2.6, it was 64 and 3.54 before. Glucose is 168. She had urinalysis done which shows urine WBC of 24. She had a CT scan of the head done, which shows atrophy and small vessel disease, no acute in tracranial abnormality. IMPRESSION: 1. Altered mental status, which appears to be a combination of toxic metabolic encephalopathy and [place] underlying dementia. 2. Renal insufficiency. 3. Urinary tract infection. RECOMMENDATIONS: 1. The patient to have MRI of the brain if she is able to tolerate it. 2. The patient to have an electroencephalogram. 3. The patient was started by me on Haldol 1 mg IM every 4 hours, which may be continued. 4. The patient also to be started on low dose of Seroquel 25 mg twice a day because of her behavior. 5. The patient to have vitamin B12 level as well as thyroid function testing done. 6. Please continue other treatment and supportive care. Thank you for the opportunity to participate in the care of this patient. Rae Martinez MD cc: [id number] TT: 04/06/2017 14:51:48 Confirmation # [id number] Dictation # [id number] davina
[2017-04-06 19:19] LABS: RBC URINE < 1 /hpf (0-3); URINE BACTERIA RARE (<OCC); URINE BILIRUBIN NEGATIVE (NEGATIVE); URINE BLOOD NEGATIVE (NEGATIVE); URINE COLOR Straw (YELLOW); URINE GLUCOSE (UA) 3+ mg/dL (Normal); URINE KETONE NEGATIVE (NEGATIVE); URINE LEUKOCYTE ESTERASE NEG Leu/uL (Negative); URINE PROTEIN 1+ mg/dL (NEGATIVE); URINE UROBILINOGEN NORMAL mg/dL (0.2-1.0); WBC URINE 1 /hpf (0-5)
[2017-04-07] MEDS: Sodium Chloride 0.9% 1,000 ML IV SCH ×3 (05:48→14:57)
[2017-04-07] MEDS: (Novolog) Insulin Aspart, Recombinant 100 u/ml 10 ml vial SC SCH ×4 (07:46→22:18)
--- NOTE | 2017-04-07 07:49 | CP.PCM.PN ---
Subjective - Date & Time of Evaluation Date of Evaluation: 04/07/17 Time of Evaluation: 07:45 - Subjective Subjective: As per the night nurse, she could not sleep well last night. She could not have a brain MRI due to agitation even with haldol injection. She denies headache, dyspnea or any pain. She feels weak. Objective - Vital Signs/Intake and Output Vital Signs (last 24 hours): Temp Pulse Resp BP Pulse Ox 97.3 F L 112 H 18 152/81 H 95 04/06/17 23:30 04/06/17 23:30 04/06/17 23:30 04/06/17 23:30 04/06/17 23:30 Intake and Output: 04/07/17 04/07/17 06:59 18:59 Intake Total 1520 Balance 1520 - Medications Medications: Current Medications Acetaminophen (Tylenol 325mg Tab) 650 mg PO Q6 PRN PRN Reason: pain Aspirin (Aspirin Chewable) 81 mg PO DAILY [facility] Last Admin: 04/06/17 09:21 Dose: 81 mg Haloperidol Lactate (Haldol) 1 mg IM Q4 PRN PRN Reason: Agitation Last Admin: 04/06/17 22:13 Dose: 1 mg Heparin Sodium (Porcine) (Heparin) 5,000 units SC Q8 [facility] Last Admin: 04/07/17 05:44 Dose: 5,000 units Sodium Chloride (Sodium Chloride 0.9%) 1,000 mls @ 80 mls/hr IV .[id number] [facility] Last Admin: 04/07/17 05:48 Dose: Not Given Ciprofloxacin (Cipro 400mg/200ml Dsw) 400 mg in 200 mls @ 133 mls/hr IVPB Q24H [facility] Last Admin: 04/06/17 09:23 Dose: 133 mls/hr Insulin Aspart (Novolog) 0 unit SC ACHS [facility] PRN Reason: Protocol Last Admin: 04/06/17 21:43 Dose: Not Given Insulin Glargine (Lantus) 20 unit SC DAILY [facility] Quetiapine Fumarate (Seroquel) 25 mg PO BID [facility] Last Admin: 04/06/17 21:39 Dose: 25 mg - Labs Labs: 04/06/17 08:23 04/06/17 08:23 PT 11.2 SECONDS (9.7-12.2) 04/04/17 20:48 INR 1.0 04/04/17 20:48 APTT 38 SECONDS (21-34) H 04/04/17 20:48 - Constitutional Appears: Non-toxic, No Acute Distress - Head Exam Head Exam: ATRAUMATIC, NORMAL INSPECTION - Respiratory Exam Respiratory Exam: NORMAL BREATHING PATTERN (fine crackles at right base) - Cardiovascular Exam Cardiovascular Exam: REGULAR RHYTHM - GI/Abdominal Exam GI & Abdominal Exam: Soft - Extremities Exam Extremities Exam: Normal Inspection Assessment and Plan - Assessment and Plan (Free Text) Assessment: 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
[2017-04-07 09:18] LABS: POTASSIUM 4.6 mmol/L (3.6-5.2)
[2017-04-07 09:21] LABS: CALCIUM 9.3 mg/dl (8.6-10.4)
[2017-04-07] MEDS: Ciprofloxacin 400mg/200ml D5W 400 MG/200 ML BAG IVPB SCH ×2 (10:00→13:27)
[2017-04-07] MEDS: (Lantus) Insulin Glargine, Recombinant SC SCH (10:00)
--- NOTE | 2017-04-07 10:15 | MRI ---
PROCEDURE: MRI BRAIN WITHOUT CONTRAST HISTORY: altered mental status COMPARISON: 04/05/2017 CT Brain. TECHNIQUE: Multiplanar, multisequence MR images of the brain were obtained without intravenous contrast enhancement. FINDINGS: HEMORRHAGE: None DWI: No evidence of an acute or early subacute infarction. BRAIN PARENCHYMA: No mass effect or edema. Mild atrophy and white matter signal abnormality in the periventricular white matter as well as in the paola. VENTRICLES: Unremarkable. No hydrocephalus. CRANIUM: Unremarkable. ORBITS: Grossly unremarkable. PARANASAL SINUSES/MASTOIDS: Clear VASCULAR SYSTEM: Skull base flow voids intact. OTHER FINDINGS: None. IMPRESSION: Mild atrophy as well as signal abnormality in the periventricular white matter and paola statistically most compatible with chronic microvascular ischemic disease.
--- NOTE | 2017-04-07 16:11 | PN ---
DATE: 04/07/2017 SUBJECTIVE: The patient is lying on the bed, in no acute distress. Denies having any headache or di zziness. PHYSICAL EXAMINATION: VITAL SIGNS: Her blood pressure is 138/76, heart rate is 86 per minute, breathing at a rate of 16 pe r minute, temperature is 97.9 degrees Fahrenheit. HEENT: Head is normocephalic, atraumatic. NECK: Supple. There are no carotid bruits. LUNGS: Clear. CARDIOVASCULAR: S1, S2 audible. No murmurs. ABDOMEN: Soft and nontender, bowel sounds present. NEUROLOGIC EXAMINATION: MENTAL STATUS: The patient is awake and alert. She knows she is in the hospital. She does not know the year or month. She follows simple commands. CRANIAL NERVES: Pupils are 3 mm, bilaterally reactive to light. Visual agustin are full. Extraocula r movements are intact. There is no facial asymmetry. MOTOR: Power is 5/5 bilaterally in all extremities. REFLEXES: Plantars downgoing bilaterally. COORDINATION: [id number] shows no dysmetria. LABORATORY DATA: Reviewed. MRI of the brain shows mild atrophy as well as a signal abnormality in t he periventricular white matter and paola, statistically most compatible with chronic microvascular is chemic disease. Her vitamin B12 is 676. T4 and TSH are within normal limits. IMPRESSION: 1. Altered mental status which appears to be a combination of toxic metabolic encephalopathy and und erlying dementia. 2. Renal insufficiency. RECOMMENDATIONS: 1. The patient is more calm since she has been started on Seroquel. 2. The patient had an electroencephalogram done which was abnormal, consistent with mild bihemispher ic cerebral dysfunction. 3. The patient to be continued on Seroquel. 4. The patient may have p.r.n. Haldol if agitated. 5. I am starting patient on Aricept 5 mg once a day. 6. Please continue other treatment. Thank you for the opportunity to participate in the care of this patient. Rae Martinez MD cc: 142 TT: 04/07/2017 16:11:19 Confirmation # [id number] Dictation # [id number] mn
[2017-04-08] MEDS: (Novolog) Insulin Aspart, Recombinant 100 u/ml 10 ml vial SC SCH ×3 (08:24→17:30)
[2017-04-08 09:15] VITALS: O2SAT 97
[2017-04-08] MEDS: Ciprofloxacin 400mg/200ml D5W 400 MG/200 ML BAG IVPB SCH (09:26)
[2017-04-08] MEDS: (Lantus) Insulin Glargine, Recombinant SC SCH (09:26)
--- NOTE | 2017-04-08 09:29 | EEG ---
DATE: 04/07/2017 INTRODUCTION: This is a digitally recorded EEG monitoring using standard EEG montages. BACKGROUND RHYTHM: The EEG shows a background activity of 7 Hz theta activity in the parietooccipita l region. The EEG activity is bilaterally symmetrical and synchronous. There is attenuation of the background activity on eye opening. A small amount of movement and myogenic artifact noticed with th is EEG recording. ABNORMAL POTENTIALS: No spikes, sharp waves or focal slowing was seen. PHOTIC STIMULATION AND HYPERVENTILATION: Photic stimulation did not reveal any abnormality. Hyperve ntilation was not performed. IMPRESSION: Abnormal EEG. The above findings are consistent with mild bihemispheric cerebral dysfun ction. No epileptiform activity seen in this EEG recording. Rae Martinez MD cc: 142 TT: 04/07/2017 18:26:53 Confirmation # [id number] Dictation # [id number] dn
--- NOTE | 2017-04-08 10:46 | PN ---
DATE: 04/08/2017 The patient is lying on the bed, in no acute distress. Denies having any headache or dizziness. PHYSICAL EXAMINATION: VITAL SIGNS: Her blood pressure is 147/64, heart rate is 78 per minute, breathing at a rate of 16 pe r minute, temperature is 98.1 degrees Fahrenheit. HEENT: Head is normocephalic, atraumatic. NECK: Supple. There are no carotid bruits. LUNGS: Clear. CARDIOVASCULAR: S1, S2 audible. No murmurs. ABDOMEN: Soft and nontender. Bowel sounds present. NEUROLOGIC EXAMINATION: MENTAL STATUS: The patient is awake, alert, oriented to place. She does not know the year or the mo nth. She follows all simple commands. CRANIAL NERVES: Pupils are 3 mm, bilaterally reactive to light. Visual agustin are full. Extraocula r movements are intact. There is no facial asymmetry. MOTOR: Tone is normal. Power is 5/5 bilaterally in all extremities. Plantars downgoing bilaterally . Fxexfq-lf-maeu shows no dysmetria. IMPRESSION: 1. Mild dementia. 2. Renal insufficiency. RECOMMENDATIONS: 1. The patient remains calm on Seroquel. 2. The patient may have p.r.n. Haldol. 3. The patient was started on Aricept. She is tolerating it very well. Having no diarrhea. 4. Please continue other treatment. Thank you for the opportunity to participate in the care of this patient. Rea Martinez MD cc: [id number] TT: 04/08/2017 10:46:04 Confirmation # [id number] Dictation # [id number] mn
--- NOTE | 2017-04-08 14:06 | CP.PCM.PN ---
Subjective - Date & Time of Evaluation Date of Evaluation: 04/08/17 Time of Evaluation: 14:03 - Subjective Subjective: stable no headache appetite: not bad Objective - Vital Signs/Intake and Output Vital Signs (last 24 hours): Temp Pulse Resp BP Pulse Ox 98.1 F 78 18 147/64 97 04/08/17 07:32 04/08/17 07:32 04/08/17 07:32 04/08/17 07:32 04/08/17 07:32 Intake and Output: 04/08/17 04/08/17 06:59 18:59 Intake Total 940 Balance 940 - Medications Medications: Current Medications Acetaminophen (Tylenol 325mg Tab) 650 mg PO Q6 PRN PRN Reason: pain Aspirin (Aspirin Chewable) 81 mg PO DAILY [facility] Last Admin: 04/08/17 09:26 Dose: 81 mg Donepezil HCl (Aricept) 5 mg PO HS [facility] Last Admin: 04/07/17 22:17 Dose: 5 mg Haloperidol Lactate (Haldol) 1 mg IM Q4 PRN PRN Reason: Agitation Last Admin: 04/07/17 08:35 Dose: 1 mg Ciprofloxacin (Cipro 400mg/200ml Dsw) 400 mg in 200 mls @ 133 mls/hr IVPB Q24H [facility] Last Admin: 04/08/17 09:26 Dose: 133 mls/hr Insulin Aspart (Novolog) 0 unit SC ACHS [facility] PRN Reason: Protocol Last Admin: 04/08/17 12:12 Dose: 8 unit Insulin Glargine (Lantus) 20 unit SC DAILY [facility] Last Admin: 04/08/17 09:26 Dose: 20 unit Quetiapine Fumarate (Seroquel) 25 mg PO BID [facility] Last Admin: 04/08/17 09:26 Dose: 25 mg - Labs Labs: 04/06/17 08:23 04/07/17 08:42 PT 11.2 SECONDS (9.7-12.2) 04/04/17 20:48 INR 1.0 04/04/17 20:48 APTT 38 SECONDS (21-34) H 04/04/17 20:48 - Constitutional Appears: Non-toxic, No Acute Distress - Respiratory Exam Respiratory Exam: NORMAL BREATHING PATTERN - Cardiovascular Exam Cardiovascular Exam: REGULAR RHYTHM, Murmur (functional) - GI/Abdominal Exam GI & Abdominal Exam: Soft, Normal Bowel Sounds Assessment and Plan - Assessment and Plan (Free Text) Assessment: 72 year old female with DM, IPF came for general weakness and renal insufficiency improved renal function, decreased creatinine mental confusion : improved as per neurology, mild dementia brain MRI and EEG suggested microvascular changes of brain aricept started Plan: discharge patient home follow up at Dr. Rizzo's office on 04/12/17
[2017-04-08 15:58] VITALS: BP 165/85; PULSE 88; RESP 20; TEMP 97.6
--- NOTE | 2017-04-09 15:02 | PQF RENAL ---
Dr. Rizzo, Please clarify if this patient was admitted in acute renal failure. Lab work Creatine - 2.6, BUN - 49. Patient treated with IV fluids Abelino hernándezis form is a permanent part of the medical record Clarification of your documentation is requested to better reflect the severity of illness and intensity of treatment of your patient. Indicators present [] Oliguria/anuria [] Edema/weight gain [] Hyponatremia [] Confusion/mental status changes [] Increased Blood Urea Nitrogen/Creatinine [] Increased Potassium/Decreased potassium [] Anemia (male <13.5, female <12.0) [] Proteinuria [] Metabolic Acidosis OR Alkalosis [] Hypotension/shock [] Decreased GFR [] Other: [] Location in the medical record that reflects the above clinical findings: PHYSICIAN'S RESPONSE Based on your medical judgment of the clinical indicators outlined above, are you treating this patient for a known or suspected: [] Acute Renal Failure [] Acute Kidney Injury [] Azotemia/prerenal azotemia [] Chronic kidney disease Stage I [] Stage II [] Stage III [] Stage IV [] [] Other condition/diagnosis:[] [] If Unable to Determine, please check the box, sign and date. Present On Admission (POA) Indicator: [] Present at the time of admission [] Not present at the time of admission [] Clinically Undetermined In responding to this query, please exercise your independent professional judgment. The fact that a question is asked does not imply that any particular answer is desired or expected. Thank you for your clarification on this documentation. If you have any questions please call:[ ] * Thank you, [ ] service specialist Chronic Kidney Disease Stages *[employer]* Stage I GFR >90 Stage II GFR 60-89 Stage III GFR 30-59 Stage IV GFR 15-29 Stage V~~~~~~~~~~ GFR <15~~~~~~~~~~~~~ MTDD
--- NOTE | 2017-04-12 18:43 | CP.PCM.DIS ---
Provider - Provider Date of Admission: 04/04/17 21:42 Attending physician: Jennifer Rizzo MD Primary care physician: A 72 year old female with a known history of uncontrolled diabetes, idiopathic pulmonary fibrosis was admitted on 04/04/17 for general weakness. She was found to have hyperkalemia and acute renal insufficiency. She was admitted for dehydration and possible UTI. She was given intravenous cipro at ER and cipro was continued. She showed fluctuating finger stick glucose. She showed mental confusion and was put on 1:1 watch. After iv hydration, her kidney function was improved. Neurology consult for mental confusion requested a brain MRI and an EEG which showed ischemic changes. She was put on Seroquel and donepezil for early dementia. She was discharged on 04/08/17. Consults: Neurology consult for mental confusion Time Spent in preparation of Discharge (in minutes): 30 Diagnosis - Discharge Diagnosis (1) Acute renal insufficiency Status: Acute Hospital Course - Lab Results Lab Results: Micro Results 04/04/17 23:00 Blood Blood Culture - Final NO GROWTH AFTER 5 DAYS 04/04/17 23:00 Blood Gram Stain - Final TEST NOT PERFORMED 04/06/17 17:15 Urine Urine Culture - Final No Growth (<1,000 CFU/ML) 04/04/17 Unknown Urine,Clean Catch Urine Culture - Final MULTIPLE SPECIES. SUGGEST REPEAT SPECIMEN. Most Recent Lab Values WBC 10.8 K/uL (4.8-10.8) 04/06/17 08:23 RBC 4.11 Mil/uL (3.80-5.20) 04/06/17 08:23 Hgb 11.3 g/dL (11.0-16.0) 04/06/17 08:23 Hct 34.7 % (34.0-47.0) 04/06/17 08:23 MCV 84.5 fL (81.0-99.0) 04/06/17 08:23 MCH 27.4 pg (27.0-31.0) 04/06/17 08:23 MCHC 32.4 g/dL (33.0-37.0) L 04/06/17 08:23 RDW 13.2 % (11.5-14.5) 04/06/17 08:23 Plt Count 233 K/uL (130-400) 04/06/17 08:23 MPV 9.6 fL (7.2-11.7) 04/06/17 08:23 Neut % (Auto) 51.4 % (50.0-75.0) 04/06/17 08:23 Lymph % (Auto) 33.8 % (20.0-40.0) 04/06/17 08:23 Wayne % (Auto) 8.8 % (0.0-10.0) 04/06/17 08:23 Eos % (Auto) 5.3 % (0.0-4.0) H 04/06/17 08:23 Baso % (Auto) 0.7 % (0.0-2.0) 04/06/17 08: Neut # 5.5 K/uL (1.8-7.0) 04/06/17 08: Lymph # 3.6 K/uL (1.0-4.3) 04/06/17 08:23 Wayne # 0.9 K/uL (0.0-0.8) H 04/06/17 08:23 Eos # 0.6 K/uL (0.0-0.7) 04/06/17 08:23 Baso # 0.1 K/uL (0.0-0.2) 04/06/17 08:23 PT 11.2 SECONDS (9.7-12.2) 04/04/17 20:48 INR 1.0 04/04/17 20:48 APTT 38 SECONDS (21-34) H 04/04/17 20:48 Puncture Site Venous 04/04/17 21:13 pO2 19 mm/Hg (30-55) L 04/04/17 21:13 Ebenezer Test Na 04/04/17 21:13 VBG pH 7.29 (7.32-7.43) L 04/04/17 21:13 VBG pCO2 52 mmHg (40-60) 04/04/17 21:13 VBG HCO3 21.1 mmol/L 04/04/17 21:13 VBG O2 Sat (Calc) 31.0 % (40-65) L 04/04/17 21:13 VBG Base Excess -2.3 mmol/L (0.0-2.0) L 04/04/17 21:13 Crit Value Called To Mark desir md 04/04/17 21:13 Crit Value Called By Rt 04/04/17 21:13 Crit Value Read Back Y 04/04/17 21:13 Blood Gas Notified Time 211504/04/17 21:13 Sodium 138 mmol/L (132-148) 04/07/17 08:42 Potassium 4.6 mmol/L (3.6-5.2) 04/07/17 08:42 Chloride 101 mmol/L (98-107) 04/07/17 08:42 Carbon Dioxide 26 mmol/L (22-30) 04/07/17 08:42 Anion Gap 16 (10-20) 04/07/17 08:42 BUN 25 mg/dL (7-17) H 04/07/17 08:42 Creatinine 1.7 MG/DL (0.7-1.2) H 04/07/17 08:42 Est GFR ( Amer) 36 04/07/17 08:42 Est GFR (Non-Af Amer) 30 04/07/17 08:42 POC Glucose (mg/dL) 206 mg/dL (65-110) H 04/08/17 16:45 Random Glucose 224 mg/dL (65-105) H 04/07/17 08:42 Hemoglobin A1c 12.3 % (4.2-6.5) H 04/05/17 07:48 Calcium 9.3 mg/dl (8.6-10.4) 04/07/17 08:42 Total Bilirubin 0.5 mg/dL (0.2-1.3) 04/05/17 07:48 AST 30 U/L (14-36) 04/05/17 07:48 ALT 12 U/L (9-52) 04/05/17 07:48 Alkaline Phosphatase 92 U/L (38-126) 04/05/17 07:48 Total Protein 7.5 g/dL (6.3-8.3) 04/05/17 07:48 Albumin 3.8 g/dL (3.5-5.0) 04/05/17 07:48 Globulin 3.7 gm/dL (2.2-3.9) 04/05/17 07:48 Albumin/Globulin Ratio 1.0 (1.0-2.1) 04/05/17 07:48 Lipase 90 U/L (23-300) 04/04/17 20:48 Vitamin B12 676 pg/mL (239-931) 04/06/17 08:23 Thyroxine (T4) 9.97 ug/dL (5.5-11.0) 04/06/17 08:23 TSH 3rd Generation 3.13 mIU/L (0.46-4.68) 04/06/17 08:23 Urine Color Straw (YELLOW) 04/06/17 19:10 Urine Clarity Clear (Clear) 04/06/17 19:10 Urine pH 6.0 (5.0-8.0) 04/06/17 19:10 Ur Specific [place] 1.008 (1.003-1.030) 04/06/17 19:10 Urine Protein 1+ mg/dL (NEGATIVE) H 04/06/17 19:10 Urine Glucose (UA) 3+ mg/dL (Normal) H 04/06/17 19:10 Urine Ketones Negative mg/dL (NEGATIVE) 04/06/17 19:10 Urine Blood Negative (NEGATIVE) 04/06/17 19:10 Urine Nitrate Negative (NEGATIVE) 04/06/17 19:10 Urine Bilirubin Negative (NEGATIVE) 04/06/17 19:10 Urine Urobilinogen Normal mg/dL (0.2-1.0) 04/06/17 19:10 Ur Leukocyte Esterase Neg Carlee/uL (Negative) 04/06/17 19:10 Urine WBC (Auto) 1 /hpf (0-5) 04/06/17 19:10 Urine RBC (Auto) < 1 /hpf (0-3) 04/06/17 19:10 Ur Squamous Epith Cells 1 /hpf (0-5) 04/06/17 19:10 Urine Bacteria Rare (<OCC) 04/06/17 19:10 Serum Ketones Negative (NEGATIVE) 04/04/17 20:48 - Hospital Course Hospital Course: The patient showed mental confusion. She pulled out IV. Neurology consult was requested. brain MRI and EEG were done. Patient was stabilized. - Date & Time of H&P Date of H&P: 04/05/17 Time of H&P: 07:30 Discharge Exam - Head Exam Head Exam: ATRAUMATIC, NORMAL INSPECTION - Respiratory Exam Respiratory Exam: NORMAL BREATHING PATTERN (crackles at right base) - Cardiovascular Exam Cardiovascular Exam: REGULAR RHYTHM - GI/Abdominal Exam GI & Abdominal Exam: Normal Bowel Sounds Discharge Plan - Discharge Medications Prescriptions: Donepezil [Aricept] 5 mg PO HS #30 tab QUEtiapine [SEROquel] 25 mg PO BID #14 tab - Follow Up Plan Condition: FAIR Disposition: HOME/ ROUTINE Instructions: Donepezil (By mouth), Quetiapine (By mouth), Renal Failure Diet ( DC), Impaired Kidney Function (DC), Acute Kidney Injury (DC), Altered Mental Status (GEN) Additional Instructions: Follow up with Dr Rizzo on 04/12/17. And follow up with Dr Martinez in 2 weeks. Take medications as instructed by the Doctor. If symptoms persist go to the Emergency room. Referrals: Rae Martinez MD [Staff Provider] - Jennifer Rizzo MD [Staff Provider] -
== END 2017-04-08 19:00 | disposition home or self-care (01) | DRG 682 ==
LOC: C.ER 19:57 → C.9E 21:42 → C.6T 22:20
PROVIDERS: ADMIT Internal Medicine; ATTEND Internal Medicine
DX: N17.9 Acute kidney failure, unspecified (principal); G92 Toxic encephalopathy; E10.65 Type 1 diabetes mellitus with hyperglycemia; F03.90 Unspecified dementia, unspecified severity, without behavioral disturbance, psychotic disturbance, mood disturbance, and anxiety; J84.112 Idiopathic pulmonary fibrosis; N39.0 Urinary tract infection, site not specified; E87.5 Hyperkalemia; I10 Essential (primary) hypertension; E78.00 Pure hypercholesterolemia, unspecified; Z79.4 Long term (current) use of insulin

== ENCOUNTER 2017-07-14 17:19 | Inpatient (IN) | payer MEDICARE ==
[2017-07-14 17:19] VITALS: BMI 25.4
--- NOTE | 2017-07-14 17:49 | C.PDOC ---
History Of Present Illness 72 Y/O FEMALE REFERRED BY PMD TO R/O SEPSIS. PATIENT STATES "I FEEL WEEK", WITH C/O GENERALIZED MALAISE AND WEAKNESS, NEW PRODUCTIVE COUGH FOR 2-3 DAYS. DENIES FEVER, VOMITING, OR OTHER ASSOCIATED SYMPTOMS. EXAM NONTOXIC, NAD LUNGS: BRONCHIAL SOUNDS, BILATERAL RHONCHI. NO RETRACTIONS. REM NEG H/O POORLY CONTROLLED DIABETES, SUGAR NORMALLY AVG 300's Time Seen by Provider: 07/14/17 17:43 Chief Complaint (Nursing): Weakness/Neurological Deficit History Per: Patient History/Exam Limitations: no limitations Onset/Duration Of Symptoms: Days Current Symptoms Are (Timing): Still Present Recent travel outside of the [place]: No Past Medical History Reviewed: Historical Data, Nursing Documentation, Vital Signs Vital Signs: Last Vital Signs Temp 97.9 F 07/14/17 17:33 Pulse 75 07/14/17 17:33 Resp 18 07/14/17 17:33 BP 118/69 07/14/17 17:33 Pulse Ox 100 07/14/17 18:21 - Medical History PMH: HTN, Hypercholesterolemia Family History: States: Unknown Family Hx - Social History Hx Alcohol Use: No Hx Substance Use: No - Immunization History Hx Influenza Vaccination: Yes Hx Pneumococcal Vaccination: Yes Review Of Systems Except As Marked, All Systems Reviewed And Found Negative. Constitutional: Positive for: Weakness. Negative for: Fever, Chills Cardiovascular: Negative for: Chest Pain, Palpitations Respiratory: Positive for: Cough, Sputum. Negative for: Shortness of Breath Gastrointestinal: Negative for: Nausea, Vomiting, Abdominal Pain Skin: Negative for: Rash Physical Exam - Physical Exam Appears: Non-toxic, No Acute Distress Skin: Normal Color, Warm, Dry Head: Atraumatic, Normacephalic Oral Mucosa: Moist Throat: Normal, No Erythema, No Exudate, No Drooling Neck: Supple Chest: Symmetrical Cardiovascular: Rhythm Regular Respiratory: No Accessory Muscle Use, No Rales, Rhonchi (BILATERAL), No Wheezing , Other (BRONCHIAL SOUNDS BILATERALLY) Gastrointestinal/Abdominal: Soft, No Tenderness, No Guarding, No Rebound Back: Normal Inspection Extremity: Normal ROM, Capillary Refill (< 2 SEC.) Neurological/Psych: Oriented x3, Normal Speech, Normal Cognition ED Course And Treatment O2 Sat by Pulse Oximetry: 100 (RA) Pulse Ox Interpretation: Normal Progress - Re-Evaluation Re-evaluation Note: 07/14/17 17:50 DEFER SEPSIS IV BOLUS DUE TO CONCERN FOR POSSIBLE HEART FAILURE. UNK EF. - Data Reviewed Data Reviewed: Lab, Diagnostic imaging, EKG, Old records Disposition Counseled Patient/Family Regarding: Studies Performed, Diagnosis - Disposition Disposition Time: 18:45 Condition: STABLE Instructions: Weakness (ED) Forms: [facility] [employer] [facility] ([place]) - Clinical Impression Clinical Impression: Pneumonia, Generalized weakness - Scribe Statement The provider has reviewed the documentation as recorded by the Scribe SM All medical record entries made by the Scribe were at my direction and personally dictated by me. I have reviewed the chart and agree that the record accurately reflects my personal performance of the history, physical exam, medical decision making, and the department course for this patient. I have also personally directed, reviewed, and agree with the discharge instructions and disposition. Physician Patient Turnover Patient Signed Over To: Alejo Resendez Handoff Comments: FU LABS, DISPO
[2017-07-14] MEDS ORDERED: Sodium Chloride 0.9% 1,000 ML IV ONE ×2 (17:50→20:18)
[2017-07-14] MEDS ORDERED: Sodium Chloride 0.9% 500 ML IV ONE ×2 (17:50→17:58)
[2017-07-14] MEDS ORDERED: Sodium Chloride 0.9% 1,000 ML ONE (17:58)
--- NOTE | 2017-07-14 18:12 | RAD ---
HISTORY: Sepsis Patient COMPARISON: Chest x-ray performed 04/04/17 TECHNIQUE: Chest, one view. FINDINGS: Examination limited by habitus. LUNGS: Prominent diffuse increased interstitial lung markings appear chronic. Patchy opacity at the right lung base may reflect infiltrate/atelectasis. No significant pleural effusion or definite pneumothorax. Biapical pleural thickening. Please note that chest x-ray has limited sensitivity for the detection of pulmonary masses. CARDIOVASCULAR: Cardiomegaly. OSSEOUS STRUCTURES: Degenerative changes of the spine. VISUALIZED UPPER ABDOMEN: Unremarkable. OTHER FINDINGS: None. IMPRESSION: Diffuse increased lung markings appear chronic. Patchy opacity right lung base may reflect atelectasis or infiltrate. Biapical pleural thickening. Cardiomegaly.
[2017-07-14] MEDS ORDERED: cefTRIAXone IV 1 gm in Dextros 50 ML IV ONE (18:21)
[2017-07-14] MEDS ORDERED: Azithromycin 500 MG in Sodium Chloride 0.9% 250 ML IV STA (18:21)
[2017-07-14 18:41] LABS: BASO # 0.1 K/uL (0.0-0.2); BASO % 0.6 % (0.0-2.0); EOS # 0.5 K/uL (0.0-0.7); EOS % 5.9 % (0.0-4.0); HEMATOCRIT 34.7 % (34.0-47.0); LYMPH # 2.6 K/uL (1.0-4.3); LYMPH % 28.3 % (20.0-40.0); MEAN CELL VOLUME 85.2 fL (81.0-99.0); MEAN CORPUSCULAR HEMOGLOBIN 27.7 pg (27.0-31.0); MEAN CORPUSCULAR HGB CONC 32.5 g/dL (33.0-37.0); MEAN PLATELET VOLUME 9.2 fL (7.2-11.7); MONO # 1.1 K/uL (0.0-0.8); MONO % 12.6 % (0.0-10.0); RED CELL DISTRIBUTION WIDTH 13.5 % (11.5-14.5)
[2017-07-14 18:43] LABS: VENOUS BLOOD GAS BASE EXCESS -0.8 mmol/L (0.0-2.0); VENOUS BLOOD GAS PCO2 52 mmHg (40-60); VENOUS BLOOD PH 7.31 (7.32-7.43)
[2017-07-14 18:44] LABS: POTASSIUM 4.7 mmol/L (3.6-5.2)
[2017-07-14 18:46] LABS: ALB/GLOB RATIO 1.1 (1.0-2.1); BILIRUBIN,TOTAL 0.5 mg/dL (0.2-1.3); TOTAL PROTEIN 8.1 g/dL (6.3-8.3)
[2017-07-14 18:47] LABS: CALCIUM 8.8 mg/dl (8.6-10.4); PHOSPHOROUS 3.7 mg/dL (2.5-4.5)
[2017-07-14] MEDS ORDERED: cefTRIAXone IV 1 gm in Dextros 50 ML IVPB ONE (19:00)
[2017-07-14] MEDS ORDERED: Azithromycin 500mg/250ML NS 500 MG/250 ML BAG IVPB ONE (19:34)
[2017-07-14 19:48] LABS: RBC URINE 1 /hpf (0-3); URINE BACTERIA RARE (<OCC); URINE BILIRUBIN NEGATIVE (NEGATIVE); URINE BLOOD NEGATIVE (NEGATIVE); URINE COLOR Yellow (YELLOW); URINE GLUCOSE (UA) 2+ mg/dL (Normal); URINE KETONE NEGATIVE (NEGATIVE); URINE LEUKOCYTE ESTERASE NEG Leu/uL (Negative); URINE PROTEIN 1+ mg/dL (NEGATIVE); URINE UROBILINOGEN NORMAL mg/dL (0.2-1.0); WBC URINE 1 /hpf (0-5)
[2017-07-14] MEDS ORDERED: Azithromycin 500 MG in Sodium Chloride 0.9% 250 ML IVPB SCH (20:15)
[2017-07-14 21:28] LABS: VENOUS BLOOD GAS BASE EXCESS -4.8 mmol/L (0.0-2.0); VENOUS BLOOD GAS PCO2 38 mmHg (40-60); VENOUS BLOOD PH 7.34 (7.32-7.43)
--- NOTE | 2017-07-14 21:54 | CP.PCM.HP ---
History of Present Illness - History of Present Illness History of Present Illness: A 72 year old female with diabetes, hypertension, questionable dementia was admitted for general weakness. She has been coughing for 2-3 days. As per the daughter who came together she is feeling dizzy, weak and losing balance when she walks. There was no fever, no shortness of breath, no chest pain. Present on Admission - Present on Admission Any Indicators Present on Admission: No History of DVT/PE: No History of Uncontrolled Diabetes: No Urinary Catheter: No Decubitus Ulcer Present: No Review of Systems - Review of Systems Systems not reviewed;Unavailable: Dementia - Constitutional Constitutional: Frequent Falls. absent: Fever, Weight Loss - Cardiovascular Cardiovascular: absent: Chest Pain - Respiratory Respiratory: absent: Cough - Gastrointestinal Gastrointestinal: absent: Diarrhea - Genitourinary Genitourinary: absent: Urinary Frequency Past Patient History - Infectious Disease Hx of Infectious Diseases: None - Past Medical History & Family History Past Medical History?: Yes - Past Social History Smoking Status: Never Smoked - CARDIAC Hx Hypercholesterolemia: Yes Hx Hypertension: Yes - PULMONARY Hx Respiratory Disorders: No - NEUROLOGICAL Hx Neurological Disorder: Yes HX Cerebrovascular Accident: Yes (2016) - HEENT Hx HEENT Problems: No - RENAL Hx Chronic Kidney Disease: No - ENDOCRINE/METABOLIC Hx Endocrine Disorders: Yes Hx Diabetes Mellitus Type 2: Yes - HEMATOLOGICAL/ONCOLOGICAL Hx Blood Disorders: No - INTEGUMENTARY Hx Dermatological Problems: No - MUSCULOSKELETAL/RHEUMATOLOGICAL Hx Musculoskeletal Disorders: No Hx Falls: No - GASTROINTESTINAL Hx Gastrointestinal Disorders: No - GENITOURINARY/GYNECOLOGICAL Hx Genitourinary Disorders: No - PSYCHIATRIC Hx Substance Use: No - SURGICAL HISTORY Hx Surgeries: Yes Hx Section: Yes Other/Comment: Lung biopsy - ANESTHESIA Hx Anesthesia: Yes Hx Anesthesia Reactions: No Hx Malignant Hyperthermia: No Meds Allergies/Adverse Reactions: Allergies Allergy/AdvReac Type Severity Reaction Status Date / Time No Known Allergies Allergy Verified 04/04/17 20:07 Physical Exam - Constitutional Appears: No Acute Distress - Neck Exam Neck exam: Positive for: Full Rom - Respiratory Exam Respiratory Exam: Clear to Auscultation Bilateral, NORMAL BREATHING PATTERN - Cardiovascular Exam Cardiovascular Exam: REGULAR RHYTHM. absent: Systolic Murmur - GI/Abdominal Exam GI & Abdominal Exam: Normal Bowel Sounds, Soft. absent: Tenderness Results - Vital Signs Recent Vital Signs: Last Vital Signs Temp 97.9 F 07/14/17 17:33 Pulse 94 H 07/14/17 21:00 Resp 16 07/14/17 21:00 BP 109/61 07/14/17 21:00 Pulse Ox 94 L 07/14/17 21:00 - Labs Result Diagrams: 07/14/17 18:33 07/14/17 18:33 Labs: Laboratory Results - last 24 hr 07/14/17 07/14/17 07/14/17 17:43 18:33 18:33 WBC 9.0 RBC 4.07 Hgb 11.3 Hct 34.7 MCV 85.2 MCH 27.7 MCHC 32.5 L RDW 13.5 Plt Count 245 MPV 9.2 Neut % (Auto) 52.6 Lymph % (Auto) 28.3 [place] % (Auto) 12.6 H Eos % (Auto) 5.9 H Baso % (Auto) 0.6 Neut # 4.8 Lymph # 2.6 [place] # 1.1 H Eos # 0.5 Baso # 0.1 PT 10.9 INR 1.0 APTT 36 H pO2 VBG pH VBG pCO2 VBG HCO3 VBG Total CO2 VBG O2 Sat (Calc) VBG Base Excess VBG Potassium Glucose Lactate Sodium Potassium Chloride Carbon Dioxide Anion Gap BUN Creatinine Est GFR ( Amer) Est GFR (Non-Af Amer) POC Glucose (mg/dL) 127 H Random Glucose Calcium Phosphorus Magnesium Total Bilirubin AST ALT Alkaline Phosphatase Total Protein Albumin Globulin Albumin/Globulin Ratio Venous Blood Potassium Urine Color Urine Clarity Urine pH Ur Specific [place] Urine Protein Urine Glucose (UA) Urine Ketones Urine Blood Urine Nitrate Urine Bilirubin Urine Urobilinogen Ur Leukocyte Esterase Urine WBC (Auto) Urine RBC (Auto) Ur Squamous Epith Cells Urine Bacteria 07/14/17 07/14/17 07/14/17 18:33 18:37 19:41 WBC RBC Hgb Hct MCV MCH MCHC RDW Plt Count MPV Neut % (Auto) Lymph % (Auto) [place] % (Auto) Eos % (Auto) Baso % (Auto) Neut # Lymph # [place] # Eos # Baso # PT INR APTT pO2 17 L VBG pH 7.31 L VBG pCO2 52 VBG HCO3 22.2 VBG Total CO2 27.8 VBG O2 Sat (Calc) 27.8 L VBG Base Excess -0.8 L VBG Potassium 4.5 Glucose 151 H Lactate 2.1 Sodium 141 142.0 Potassium 4.7 Chloride 107 110.0 H Carbon Dioxide 22 Anion Gap 16 BUN 35 H Creatinine 2.0 H Est GFR ( Amer) 30 Est GFR (Non-Af Amer) 24 POC Glucose (mg/dL) Random Glucose 137 H Calcium 8.8 Phosphorus 3.7 Magnesium 2.0 Total Bilirubin 0.5 AST 24 ALT 24 Alkaline Phosphatase 98 Total Protein 8.1 Albumin 4.2 Globulin 3.9 Albumin/Globulin Ratio 1.1 Venous Blood Potassium 4.5 Urine Color Yellow Urine Clarity Clear Urine pH 5.0 Ur Specific [place] 1.011 Urine Protein 1+ H Urine Glucose (UA) 2+ H Urine Ketones Negative Urine Blood Negative Urine Nitrate Negative Urine Bilirubin Negative Urine Urobilinogen Normal Ur Leukocyte Esterase Neg Urine WBC (Auto) 1 Urine RBC (Auto) 1 Ur Squamous Epith Cells 1 Urine Bacteria Rare 07/14/17 21:20 WBC RBC Hgb Hct MCV MCH MCHC RDW Plt Count MPV Neut % (Auto) Lymph % (Auto) [place] % (Auto) Eos % (Auto) Baso % (Auto) Neut # Lymph # [place] # Eos # Baso # PT INR APTT pO2 36 VBG pH 7.34 VBG pCO2 38 L VBG HCO3 20.3 VBG Total CO2 21.7 L VBG O2 Sat (Calc) 75.1 H VBG Base Excess -4.8 L VBG Potassium 4.5 Glucose 236 H Lactate 0.8 Sodium 142.0 Potassium Chloride 116.0 H Carbon Dioxide Anion Gap BUN Creatinine Est GFR ( Amer) Est GFR (Non-Af Amer) POC Glucose (mg/dL) Random Glucose Calcium Phosphorus Magnesium Total Bilirubin AST ALT Alkaline Phosphatase Total Protein Albumin Globulin Albumin/Globulin Ratio Venous Blood Potassium 4.5 Urine Color Urine Clarity Urine pH Ur Specific [place] Urine Protein Urine Glucose (UA) Urine Ketones Urine Blood Urine Nitrate Urine Bilirubin Urine Urobilinogen Ur Leukocyte Esterase Urine WBC (Auto) Urine RBC (Auto) Ur Squamous Epith Cells Urine Bacteria Assessment & Plan - Assessment and Plan (Free Text) Assessment: A 72 year old female with DM, dementia, Chest X-ray showed infiltrates at right base pneumonia Plan: iv antibiotics, Zithromax and Rocephin. septic study check vitals iv hydration - Date & Time Date: 07/14/17 Time: 21:57
[2017-07-14] MEDS: (Novolin R) Insulin Human Regular 100 units/ml vial SC SCH (22:31)
[2017-07-15 07:58] LABS: BASO % 0.5 % (0.0-2.0); EOS # 0.6 K/uL (0.0-0.7); HEMATOCRIT 32.9 % (34.0-47.0); LYMPH # 2.3 K/uL (1.0-4.3); LYMPH % 25.2 % (20.0-40.0); MEAN CELL VOLUME 85.3 fL (81.0-99.0); MEAN CORPUSCULAR HEMOGLOBIN 28.5 pg (27.0-31.0); MEAN CORPUSCULAR HGB CONC 33.4 g/dL (33.0-37.0); MEAN PLATELET VOLUME 9.6 fL (7.2-11.7); MONO # 0.8 K/uL (0.0-0.8); MONO % 8.3 % (0.0-10.0); NRBC % 0.1 % (0.0-2.0); RED CELL DISTRIBUTION WIDTH 13.6 % (11.5-14.5); WHITE BLOOD COUNT 9.2 K/uL (4.8-10.8)
[2017-07-15 08:10] LABS: POTASSIUM 4.2 mmol/L (3.6-5.2)
[2017-07-15 08:12] LABS: BILIRUBIN,TOTAL 0.4 mg/dL (0.2-1.3); TOTAL PROTEIN 7.5 g/dL (6.3-8.3)
[2017-07-15 08:13] LABS: CALCIUM 8.5 mg/dl (8.6-10.4)
[2017-07-15] MEDS: (Lantus) Insulin Glargine, Recombinant SC SCH (09:35)
[2017-07-15] MEDS: Pantoprazole 40 mg EC Tab PO SCH (09:36)
[2017-07-15] MEDS: (Novolin R) Insulin Human Regular 100 units/ml vial SC SCH ×4 (09:43→22:20)
[2017-07-15] MEDS: (Novolog) Insulin Aspart, Recombinant 100 u/ml 10 ml vial SC SCH ×3 (09:44→18:31)
[2017-07-15] MEDS: cefTRIAXone IV 1 gm in Dextros 50 ML IVPB SCH (09:45)
--- NOTE | 2017-07-15 17:15 | CP.PCM.PN ---
Subjective - Date & Time of Evaluation Date of Evaluation: 07/15/17 Time of Evaluation: 17:11 - Subjective Subjective: confused general body aches, upper chest area no headache no nausea Objective - Vital Signs/Intake and Output Vital Signs (last 24 hours): Temp Pulse Resp BP Pulse Ox 98.1 F 82 20 151/69 H 95 07/15/17 08:15 07/15/17 08:15 07/15/17 08:15 07/15/17 08:15 07/15/17 08:15 - Medications Medications: Current Medications Heparin Sodium (Porcine) (Heparin) 5,000 units SC Q12 [facility] Last Admin: 07/15/17 09:36 Dose: 5,000 units Azithromycin 500 mg/ Sodium (Chloride) 250 mls @ 250 mls/hr IVPB Q24H [facility] Last Admin: 07/14/17 20:20 Dose: Not Given Ceftriaxone Sodium (Rocephin Iv 1 Gm Duplex) 50 mls @ 100 mls/hr IVPB DAILY [facility] Last Admin: 07/15/17 09:45 Dose: Not Given Insulin Aspart (Novolog) 10 unit SC TID [facility] Last Admin: 07/15/17 15:37 Dose: 10 unit Insulin Glargine (Lantus) 30 unit SC DAILY [facility] Last Admin: 07/15/17 09:35 Dose: 30 units Insulin Human Regular (Novolin R) 0 unit SC ACHS [facility] PRN Reason: Protocol Last Admin: 07/15/17 12:23 Dose: 1 unit Pantoprazole Sodium (Protonix Ec Tab) 40 mg PO DAILY [facility] Last Admin: 07/15/17 09:36 Dose: 40 mg - Labs Labs: 07/15/17 07:48 07/15/17 07:48 PT 10.9 SECONDS (9.7-12.2) 07/14/17 18:33 INR 1.0 07/14/17 18:33 APTT 36 SECONDS (21-34) H 07/14/17 18:33 - Constitutional Appears: No Acute Distress - Respiratory Exam Respiratory Exam: Rales (bilateral bases), Rhonchi, NORMAL BREATHING PATTERN - Cardiovascular Exam Cardiovascular Exam: REGULAR RHYTHM, Murmur (soft systolic) - GI/Abdominal Exam GI & Abdominal Exam: Soft. absent: Tenderness - Extremities Exam Extremities Exam: Normal Inspection. absent: Pedal Edema Assessment and Plan - Assessment and Plan (Free Text) Assessment: history of DM, renal insufficiency, dementia came with severe general weakness, inablity to maintain balance on walking pneumonia, right infiltrates patient pulled out iv last night three times as per nurses, she is a hard stick can not put back iv line Plan: need a PICC line insertion waiting for a family to give a consent. will do a CAT scan of chest without contrast check proBNP
--- NOTE | 2017-07-15 18:49 | CT ---
CT chest without IV contrast Indication: Pneumonia Technique: Contiguous axial images were obtained through the chest without intravenous contrast enhancement. Sagittal and coronal reconstructions were generated and reviewed. This CT exam was performed using 1 or more of the falling dose reduction techniques: Automated exposure control, adjustment of the MAA and/or kV according to patient size, and/or use of iterative reconstruction technique. Radiation dose (DLP): 301.88 MGy-cm. Comparison: Chest x-ray performed 07/14/17, CT chest without contrast performed 04/09/16 Findings: Visualized portions of the inferior thyroid gland appear unremarkable. Borderline cardiomegaly. Atherosclerotic calcifications of the aorta. Dense coronary artery calcifications. Biapical pleural thickening/ scarring. Scattered ground-glass densities throughout bilateral lung ag[place] with associated bronchial wall thickening and evidence of bronchiectasis. Honeycombing. Diffuse increased interstitial lung markings. 6 mm calcified granuloma, right lung base. Small hiatal hernia. Limited visualization of the noncontrast upper abdomen ; contracted gallbladder with evidence of large calcified gallstone. Nonobstructing bilateral renal calculi. Scattered calcifications within bilateral breast soft tissues, nonspecific. Degenerative changes of the spine. Impression: Biapical pleural thickening/ scarring. Scattered ground-glass densities throughout bilateral lung ag[place] with associated bronchial wall thickening and evidence of bronchiectasis. Honeycombing. Diffuse increased interstitial lung markings. Constellation of findings consistent with pulmonary fibrosis. No large focal consolidation identified. Subtle superimposed infection is not excluded. 6 mm calcified granuloma, right lung base. Borderline cardiomegaly. Dense atherosclerotic calcifications of the aorta. Dense coronary artery calcifications. Contracted gallbladder with evidence of large calcified gallstone. Nonobstructing bilateral renal calculi. Scattered calcifications within bilateral breasts, nonspecific. Small hiatal hernia. Additional findings as above.
[2017-07-15] MEDS ORDERED: Albuterol-Ipratrop 3 mg / 0.5 (3 ml) UD INH PRN (22:39)
[2017-07-16] MEDS: (Novolin R) Insulin Human Regular 100 units/ml vial SC SCH ×4 (08:48→21:48)
[2017-07-16] MEDS: (Lantus) Insulin Glargine, Recombinant SC SCH (11:06)
[2017-07-16] MEDS: Pantoprazole 40 mg EC Tab PO SCH (11:06)
[2017-07-16] MEDS: (Novolog) Insulin Aspart, Recombinant 100 u/ml 10 ml vial SC SCH ×3 (11:07→18:19)
[2017-07-16] MEDS: cefTRIAXone IV 1 gm in Dextros 50 ML IVPB SCH (11:08)
[2017-07-16] MEDS ORDERED: Azithromycin 500 MG in Sodium Chloride 0.9% 250 ML IVPB SCH (12:00)
--- NOTE | 2017-07-16 17:03 | CT ---
PROCEDURE: CT HEAD WITHOUT CONTRAST. HISTORY: r/o subdural hematoma COMPARISON: Head CT without contrast 04/05/2017. TECHNIQUE: Axial computed tomography images were obtained through the head/brain without intravenous contrast. Radiation dose: Total exam DLP = 760.34 mGy-cm. This CT exam was performed using one or more of the following dose reduction techniques: Automated exposure control, adjustment of the mA and/or kV according to patient size, and/or use of iterative reconstruction technique. FINDINGS: HEMORRHAGE: No intracranial hemorrhage. BRAIN: No mass effect or edema. Stable age-related degenerate changes are identified. No significant interval changes appreciated throughout, including posterior fossa contents and brainstem. VENTRICLES: Unremarkable. No hydrocephalus. CALVARIUM: Unremarkable. PARANASAL SINUSES: Unremarkable as visualized. No significant inflammatory changes. MASTOID AIR CELLS: Unremarkable as visualized. No inflammatory changes. OTHER FINDINGS: None. IMPRESSION: Stable age related neuro degenerative changes are identified without significant change as discussed above. No intracranial hemorrhage identified. Follow-up MRI or CT are available if clinically warranted.
--- NOTE | 2017-07-16 17:22 | CP.PCM.PN ---
Subjective - Date & Time of Evaluation Date of Evaluation: 07/16/17 Time of Evaluation: 17:19 - Subjective Subjective: feels better no anorexia no shortness of breath Objective - Vital Signs/Intake and Output Vital Signs (last 24 hours): Temp Pulse Resp BP Pulse Ox 98.2 F 106 H 20 144/76 98 07/16/17 16:00 07/16/17 16:00 07/16/17 16:00 07/16/17 16:00 07/16/17 16:00 Intake and Output: 07/16/17 07/16/17 06:59 18:59 Intake Total 500 240 Balance 500 240 - Medications Medications: Current Medications Albuterol/Ipratropium (Duoneb 3 Mg/0.5 Mg (3 Ml) Ud) 3 ml INH RQ6 PRN PRN Reason: Shortness of Breath Heparin Sodium (Porcine) (Heparin) 5,000 units SC Q12 [facility] Last Admin: 07/16/17 11:07 Dose: 5,000 units Ceftriaxone Sodium (Rocephin Iv 1 Gm Duplex) 50 mls @ 100 mls/hr IVPB DAILY [facility] Last Admin: 07/16/17 11:08 Dose: 100 mls/hr Azithromycin 500 mg/ Sodium (Chloride) 250 mls @ 167 mls/hr IVPB Q24H [facility] Last Admin: 07/16/17 12:16 Dose: 167 mls/hr Insulin Aspart (Novolog) 10 unit SC TID [facility] Last Admin: 07/16/17 13:51 Dose: 10 unit Insulin Glargine (Lantus) 30 unit SC DAILY [facility] Last Admin: 07/16/17 11:06 Dose: Not Given Insulin Human Regular (Novolin R) 0 unit SC ACHS [facility] PRN Reason: Protocol Last Admin: 07/16/17 12:15 Dose: 5 unit Pantoprazole Sodium (Protonix Ec Tab) 40 mg PO DAILY [facility] Last Admin: 07/16/17 11:06 Dose: 40 mg - Labs Labs: 07/15/17 07:48 07/15/17 07:48 PT 10.9 SECONDS (9.7-12.2) 07/14/17 18:33 INR 1.0 07/14/17 18:33 APTT 36 SECONDS (21-34) H 07/14/17 18:33 - Constitutional Appears: No Acute Distress - Neck Exam Neck Exam: Full ROM - Cardiovascular Exam Cardiovascular Exam: REGULAR RHYTHM, Murmur (systolic) - GI/Abdominal Exam GI & Abdominal Exam: Soft. absent: Tenderness - Exam External exam: NORMAL EXTERNAL EXAM. absent: Swelling Assessment and Plan - Assessment and Plan (Free Text) Assessment: chest CT showed pulmonoary fibrosis, bronchiectasis patient is on 1:1 watch for mental confusion focla infection could not be excluded. CAT scan of head : neuro-degenerative changes, age related diabetes, poorly controlled. Plan: continue iv rocephin and iv zithromax neuro check neuro consult DM control fall precaution D/C planning
--- NOTE | 2017-07-16 18:47 | CP.PCM.CON ---
History of Present Illness - History of Present Illness History of Present Illness: CONSULT DICTATED TOXIC Vs METABOLIC ENCEPHALOPATHY WITH UNDERLYING DEMENTIA HYDRATION AND DIABETIC CONTROL EMPHERICAL ANTIBIOTICS EEG RESUME ARICEPT Past Patient History - Infectious Disease Hx of Infectious Diseases: None - Past Medical History & Family History Past Medical History?: Yes - Past Social History Smoking Status: Never Smoked - CARDIAC Hx Hypercholesterolemia: Yes Hx Hypertension: Yes - PULMONARY Hx Respiratory Disorders: No - NEUROLOGICAL Hx Neurological Disorder: Yes HX Cerebrovascular Accident: Yes (2015) - HEENT Hx HEENT Problems: No - RENAL Hx Chronic Kidney Disease: No - ENDOCRINE/METABOLIC Hx Endocrine Disorders: Yes Hx Diabetes Mellitus Type 2: Yes - HEMATOLOGICAL/ONCOLOGICAL Hx Blood Disorders: No - INTEGUMENTARY Hx Dermatological Problems: No - MUSCULOSKELETAL/RHEUMATOLOGICAL Hx Musculoskeletal Disorders: No Hx Falls: No - GASTROINTESTINAL Hx Gastrointestinal Disorders: No - GENITOURINARY/GYNECOLOGICAL Hx Genitourinary Disorders: No - PSYCHIATRIC Hx Substance Use: No - SURGICAL HISTORY Hx Surgeries: Yes Hx Section: Yes Other/Comment: Lung biopsy - ANESTHESIA Hx Anesthesia: Yes Hx Anesthesia Reactions: No Hx Malignant Hyperthermia: No Meds Allergies/Adverse Reactions: Allergies Allergy/AdvReac Type Severity Reaction Status Date / Time No Known Allergies Allergy Verified 04/04/17 20:07 - Medications Medications: Current Medications Albuterol/Ipratropium (Duoneb 3 Mg/0.5 Mg (3 Ml) Ud) 3 ml INH RQ6 PRN PRN Reason: Shortness of Breath Heparin Sodium (Porcine) (Heparin) 5,000 units SC Q12 [facility] Last Admin: 07/16/17 11:07 Dose: 5,000 units Ceftriaxone Sodium (Rocephin Iv 1 Gm Duplex) 50 mls @ 100 mls/hr IVPB DAILY [facility] Last Admin: 07/16/17 11:08 Dose: 100 mls/hr Azithromycin 500 mg/ Sodium (Chloride) 250 mls @ 167 mls/hr IVPB Q24H [facility] Last Admin: 07/16/17 12:16 Dose: 167 mls/hr Insulin Aspart (Novolog) 10 unit SC TID [facility] Last Admin: 07/16/17 18:19 Dose: 10 unit Insulin Glargine (Lantus) 30 unit SC DAILY [facility] Last Admin: 07/16/17 11:06 Dose: Not Given Insulin Human Regular (Novolin R) 0 unit SC ACHS [facility] PRN Reason: Protocol Last Admin: 07/16/17 18:18 Dose: 2 unit Pantoprazole Sodium (Protonix Ec Tab) 40 mg PO DAILY [facility] Last Admin: 07/16/17 11:06 Dose: 40 mg Results - Vital Signs Recent Vital Signs: Last Vital Signs Temp 98.2 F 07/16/17 16:00 Pulse 89 07/16/17 16:08 Resp 20 07/16/17 16:00 BP 144/76 07/16/17 16:08 Pulse Ox 98 07/16/17 16:08 - Labs Result Diagrams: 07/15/17 07:48 07/15/17 07:48 Labs: Laboratory Results - last 24 hr 07/15/17 07/16/17 07/16/17 21:17 07:14 08:41 POC Glucose (mg/dL) 239 H 250 H NT-Pro-B Natriuret Pep 370 07/16/17 07/16/17 11:33 16:36 POC Glucose (mg/dL) 360 H 228 H NT-Pro-B Natriuret Pep
--- NOTE | 2017-07-17 05:01 | CON ---
DATE: 07/16/2017 REASON FOR CONSULTATION: Change in mental status. CHIEF COMPLAINT: The patient was brought into [facility] by her daughter with a history of weakness and nonproductive cough for 3 days. During the hospitalization, the patient was found to be confused. From neurological point of view, I was called in to evaluate her for further management. HISTORY OF PRESENT ILLNESS: Ms. Sara Nur is a 72-year-old right-handed female has been admitted with a history of upper respiratory infection. During her hospitalization, the patient was found to be confused. From neurological point of view, I was called in to evaluate her for further management. The patient does not have a fall or any documented head injuries or involuntary movements. No history of loss consciousness or involuntary movements. PAST MEDICAL HISTORY: Dementia, pneumonia, hypertension, and dyslipidemia. PERSONAL HISTORY: Denies smoking or alcohol use. She lives with her daughter. REVIEW OF SYSTEMS: A 16-point systems have been reviewed. From neurologic point, a new set of confusion. MEDICATIONS: Azithromycin, heparin, Lantus, Novolin, NovoLog, Protonix, and ceftriaxone. PHYSICAL EXAMINATION: VITAL SIGNS: Blood pressure 144/76, mean arterial pressure of 98, respiratory rate 16, and temperature afebrile. NECK: Supple. No carotid bruit. HEART: Sounds are regular. CHEST: Fair air entry. EXTREMITIES: No edema of legs. NEUROLOGIC: MENTAL STATUS EXAMINATION: She is awake, alert, and oriented to person, place, and time. Speech is clear. Naming, repetition, fluency, and comprehension all within normal. She is communicable only in [place]. No sign of depression. She follows one to two steps commands. CRANIAL NERVE EXAMINATION: Visual agustin intact. Pupils reactive to light. Extraocular movement normal. No nystagmus. No facial sensory deficit. MOTOR EXAMINATION: She could able to lift both upper extremities against the gravity. No drift noted. Deep tendon reflexes straight throughout. Plantars are downgoing. SENSORY EXAMINATION: No cortical sensory loss. GAIT: She could able to walk slow, but she could able to walk independently. On turning, she feel slight discomfort, steady and tendency to grab something. LABORATORY DATA: Workup; CT of the head reviewed, no acute pathology is noted. WBC 9.2, hemoglobin 11.2, hematocrit 32.9,and platelet 242. PT 10.9, INR 1.0, and PTT 36.0. Sodium 143, potassium 4.2, chloride 111, bicarbonate 19, glucose 362, hemoglobin A1c 9.8, and calcium 8.5. CONCLUSION: Upon reviewing her history and neurological examination, Ms. Sara Nur is presenting with bilateral cerebral dysfunction, this is probably secondary to metabolic insult versus toxic manifestation, which also superimposed with her underlying dementia. RECOMMENDATIONS: 1. Electroencephalogram to rule out any paroxysmal activities. 2. Proper hydration and control her diabetes. 3. Appropriate antibiotic for her pneumonia. The patient can resume her Aricept, which she has been taking as outpatient. Real Montgomery MD
[2017-07-17 08:05] LABS: BASO # 0.1 K/uL (0.0-0.2); BASO % 0.5 % (0.0-2.0); EOS # 0.4 K/uL (0.0-0.7); EOS % 4.4 % (0.0-4.0); HEMATOCRIT 34.1 % (34.0-47.0); LYMPH # 2.2 K/uL (1.0-4.3); LYMPH % 22.4 % (20.0-40.0); MEAN CORPUSCULAR HEMOGLOBIN 28.3 pg (27.0-31.0); MEAN CORPUSCULAR HGB CONC 33.7 g/dL (33.0-37.0); MEAN PLATELET VOLUME 9.6 fL (7.2-11.7); MONO # 0.8 K/uL (0.0-0.8); MONO % 8.3 % (0.0-10.0); NRBC % 0.1 % (0.0-2.0); RED CELL DISTRIBUTION WIDTH 13.5 % (11.5-14.5); WHITE BLOOD COUNT 9.9 K/uL (4.8-10.8)
--- NOTE | 2017-07-17 08:10 | CP.PCM.PN ---
Subjective - Date & Time of Evaluation Date of Evaluation: 07/17/17 Time of Evaluation: 08:08 - Subjective Subjective: feeling weak and general aches no dyspnea Objective - Vital Signs/Intake and Output Vital Signs (last 24 hours): Temp Pulse Resp BP Pulse Ox 98.1 F 77 19 144/75 96 07/17/17 07:50 07/17/17 07:50 07/17/17 07:50 07/17/17 07:50 07/17/17 07:50 Intake and Output: 07/17/17 07/17/17 06:59 18:59 Intake Total 400 Balance 400 - Medications Medications: Current Medications Albuterol/Ipratropium (Duoneb 3 Mg/0.5 Mg (3 Ml) Ud) 3 ml INH RQ6 PRN PRN Reason: Shortness of Breath Donepezil HCl (Aricept) 10 mg PO HS [facility] Last Admin: 07/16/17 21:36 Dose: 10 mg Heparin Sodium (Porcine) (Heparin) 5,000 units SC Q12 [facility] Last Admin: 07/16/17 21:36 Dose: 5,000 units Ceftriaxone Sodium (Rocephin Iv 1 Gm Duplex) 50 mls @ 100 mls/hr IVPB DAILY [facility] Last Admin: 07/16/17 11:08 Dose: 100 mls/hr Azithromycin 500 mg/ Sodium (Chloride) 250 mls @ 167 mls/hr IVPB Q24H [facility] Last Admin: 07/16/17 12:16 Dose: 167 mls/hr Insulin Aspart (Novolog) 10 unit SC TID [facility] Last Admin: 07/16/17 18:19 Dose: 10 unit Insulin Glargine (Lantus) 30 unit SC DAILY [facility] Last Admin: 07/16/17 11:06 Dose: Not Given Insulin Human Regular (Novolin R) 0 unit SC ACHS [facility] PRN Reason: Protocol Last Admin: 07/16/17 21:48 Dose: Not Given Pantoprazole Sodium (Protonix Ec Tab) 40 mg PO DAILY [facility] Last Admin: 07/16/17 11:06 Dose: 40 mg - Labs Labs: 07/17/17 07:50 07/15/17 07:48 PT 10.9 SECONDS (9.7-12.2) 07/14/17 18:33 INR 1.0 07/14/17 18:33 APTT 36 SECONDS (21-34) H 07/14/17 18:33 - Constitutional Appears: No Acute Distress, Chronically Ill - Neck Exam Neck Exam: Full ROM - Respiratory Exam Respiratory Exam: Rales (coarse, bilateral), NORMAL BREATHING PATTERN - Cardiovascular Exam Cardiovascular Exam: REGULAR RHYTHM, Murmur (soft systolic) - GI/Abdominal Exam GI & Abdominal Exam: Normal Bowel Sounds Assessment and Plan - Assessment and Plan (Free Text) Assessment: 72 year old female came with general weakness right side pneumonia pulmonary fibrosis uncontrolled diabetes renal insufficiency mental confusion, as per neurology, metabolic encephalopathy Plan: will repeat labs in AM follow up neurology consult add lisinopril
[2017-07-17 08:20] LABS: POTASSIUM 4.4 mmol/L (3.6-5.2)
[2017-07-17 08:23] LABS: CALCIUM 9.4 mg/dl (8.6-10.4)
[2017-07-17] MEDS: (Novolin R) Insulin Human Regular 100 units/ml vial SC SCH ×4 (08:34→21:41)
[2017-07-17] MEDS: Pantoprazole 40 mg EC Tab PO SCH (10:10)
[2017-07-17] MEDS: (Novolog) Insulin Aspart, Recombinant 100 u/ml 10 ml vial SC SCH ×3 (10:12→18:32)
[2017-07-17] MEDS: (Lantus) Insulin Glargine, Recombinant SC SCH (10:22)
[2017-07-17] MEDS ORDERED: Azithromycin 500 MG in Sodium Chloride 0.9% 250 ML IVPB SCH (12:00)
[2017-07-17] MEDS: Dextrose 50% SYRINGE Inj (50 ml) IV ONE ×2 (17:06→17:13)
[2017-07-18] MEDS: (Novolin R) Insulin Human Regular 100 units/ml vial SC SCH ×4 (08:19→21:33)
[2017-07-18] MEDS: (Novolog) Insulin Aspart, Recombinant 100 u/ml 10 ml vial SC SCH ×3 (09:59→21:58)
[2017-07-18] MEDS: Pantoprazole 40 mg EC Tab PO SCH (09:59)
[2017-07-18] MEDS: (Lantus) Insulin Glargine, Recombinant SC SCH (10:00)
--- NOTE | 2017-07-18 13:02 | CP.PCM.PN ---
Subjective - Date & Time of Evaluation Date of Evaluation: 07/18/17 Time of Evaluation: 12:59 - Subjective Subjective: feels better no shortness of breath no fever Objective - Vital Signs/Intake and Output Vital Signs (last 24 hours): Temp Pulse Resp BP Pulse Ox 98.1 F 82 20 175/73 H 100 07/18/17 07:18 07/18/17 07:18 07/18/17 07:18 07/18/17 07:18 07/18/17 07:18 - Medications Medications: Current Medications Albuterol/Ipratropium (Duoneb 3 Mg/0.5 Mg (3 Ml) Ud) 3 ml INH RQ6 PRN PRN Reason: Shortness of Breath Donepezil HCl (Aricept) 10 mg PO HS [facility] Last Admin: 07/17/17 21:41 Dose: 10 mg Haloperidol Lactate (Haldol) 2 mg IM ONCE PRN PRN Reason: Agitation Last Admin: 07/17/17 12:38 Dose: 2 mg Ceftriaxone Sodium (Rocephin Iv 1 Gm Duplex) 50 mls @ 100 mls/hr IVPB DAILY [facility] Last Admin: 07/16/17 11:08 Dose: 100 mls/hr Azithromycin 500 mg/ Sodium (Chloride) 250 mls @ 167 mls/hr IVPB Q24H [facility] Last Admin: 07/16/17 12:16 Dose: 167 mls/hr Insulin Aspart (Novolog) 10 unit SC TID [facility] Last Admin: 07/18/17 09:59 Dose: 10 unit Insulin Glargine (Lantus) 30 unit SC DAILY [facility] Last Admin: 07/18/17 10:00 Dose: 30 units Insulin Human Regular (Novolin R) 0 unit SC ACHS [facility] PRN Reason: Protocol Last Admin: 07/18/17 12:00 Dose: 1 unit Lisinopril (Zestril) 5 mg PO DAILY [facility] Last Admin: 07/18/17 09:59 Dose: 5 mg Pantoprazole Sodium (Protonix Ec Tab) 40 mg PO DAILY [facility] Last Admin: 07/18/17 09:59 Dose: 40 mg - Labs Labs: 07/17/17 07:50 07/17/17 07:50 PT 10.9 SECONDS (9.7-12.2) 07/14/17 18:33 INR 1.0 07/14/17 18:33 APTT 36 SECONDS (21-34) H 07/14/17 18:33 - Constitutional Appears: No Acute Distress - Neck Exam Neck Exam: Normal Inspection - Respiratory Exam Respiratory Exam: Clear to Ausculation Bilateral, NORMAL BREATHING PATTERN - Cardiovascular Exam Cardiovascular Exam: REGULAR RHYTHM. absent: Murmur - GI/Abdominal Exam GI & Abdominal Exam: Soft, Normal Bowel Sounds. absent: Tenderness - Extremities Exam Extremities Exam: Normal Inspection Assessment and Plan - Assessment and Plan (Free Text) Assessment: 72 year old female with diabetes who came with general weakness pneumonia history of pulmonary fibrosis renal insufficiency - improved uncontrolled diabetes hypertension Plan: antibiotics watch for mental status for intermittent mental confusion diabetic control
[2017-07-18] MEDS ORDERED: Dextrose 50% SYRINGE Inj (50 ml) ONE (17:19)
--- NOTE | 2017-07-18 17:22 | PCM.RRT ---
FOOD SAFETY SCIENTIST Nurses Assessment - Situation Date: 07/18/17 I.Reason for FOOD SAFETY SCIENTIST - A) Acute Change in Patient: (Select all that apply): Staff member or family is worried about patient Subjective: House doctor note: Rapid response called for hypoglycemia. Blood glucose on arrival was 26. Patient was given juice x1 and glucose improved to 56. another juice was given with an amp of D50. Patient was given lantus 30 at 10 am and 10 u novalog at 2: 30 pm. Repeat glucose was 255. Vitals: temp 97.5, BP 163/72, HR 94, O2 94 RA - Neurological Status (Select all that apply): Alert, Responsive, Oriented, Verbal, Follows Commands - Constitutional Appears: Well - Head Head Exam: NORMAL INSPECTION, NORMOCEPHALIC - Eyes Eye Exam: EOMI, Normal appearance - Respiratory Exam Respiratory Exam: Clear to Ausculation Bilateral, NORMAL BREATHING PATTERN - Cardiovascular Exam Cardiovascular Exam: REGULAR RHYTHM, +S1, +S2 - GI/Abdominal Exam GI & Abdominal Exam: Soft. absent: Distended, Tenderness - Neurological Exam Neurological Exam: Alert, Awake - Extremities Exam Extremities Exam: Full ROM, Normal Inspection Plan - Assessment of Findings&Treatment Plan Juice x2 1 amp D50 Consult endocrinology ()
[2017-07-18] MEDS ORDERED: Dextrose 50% SYRINGE Inj (50 ml) IV STA (17:30)
[2017-07-18] MEDS ORDERED: (Lantus) Insulin Glargine, Recombinant SC SCH (22:00)
[2017-07-19 07:07] VITALS: RESP 20
[2017-07-19] MEDS: (Novolog) Insulin Aspart, Recombinant 100 u/ml 10 ml vial SC SCH ×5 (07:37→21:39)
[2017-07-19 07:58] LABS: BASO # 0.1 K/uL (0.0-0.2); BASO % 0.7 % (0.0-2.0); EOS # 0.6 K/uL (0.0-0.7); EOS % 5.1 % (0.0-4.0); HEMATOCRIT 36.4 % (34.0-47.0); LYMPH # 2.9 K/uL (1.0-4.3); LYMPH % 26.3 % (20.0-40.0); MEAN CELL VOLUME 85.3 fL (81.0-99.0); MEAN CORPUSCULAR HEMOGLOBIN 27.9 pg (27.0-31.0); MEAN CORPUSCULAR HGB CONC 32.7 g/dL (33.0-37.0); MEAN PLATELET VOLUME 9.4 fL (7.2-11.7); MONO # 0.9 K/uL (0.0-0.8); RED CELL DISTRIBUTION WIDTH 13.5 % (11.5-14.5); WHITE BLOOD COUNT 11.1 K/uL (4.8-10.8)
--- NOTE | 2017-07-19 08:02 | CP.PCM.PN ---
Subjective - Date & Time of Evaluation Date of Evaluation: 07/19/17 Time of Evaluation: 07:59 - Subjective Subjective: yesterday around 4:30 PM, she had a rapid response for hypoglycemia (27). She is at bed side, now having a bedside EEG now. feels better. Objective - Vital Signs/Intake and Output Vital Signs (last 24 hours): Temp Pulse Resp BP Pulse Ox 98.2 F 79 20 144/77 96 07/19/17 07:01 07/19/17 07:01 07/19/17 07:01 07/19/17 07:01 07/19/17 07:01 Intake and Output: 07/19/17 07/19/17 06:59 18:59 Intake Total 240 Balance 240 - Medications Medications: Current Medications Albuterol/Ipratropium (Duoneb 3 Mg/0.5 Mg (3 Ml) Ud) 3 ml INH RQ6 PRN PRN Reason: Shortness of Breath Amlodipine Besylate (Norvasc) 5 mg PO DAILY [facility] Azithromycin (Zithromax) 500 mg PO DAILY [facility] Last Admin: 07/18/17 14:34 Dose: 500 mg Donepezil HCl (Aricept) 10 mg PO HS [facility] Last Admin: 07/18/17 21:32 Dose: 10 mg Haloperidol Lactate (Haldol) 2 mg IM ONCE PRN PRN Reason: Agitation Last Admin: 07/17/17 12:38 Dose: 2 mg Ceftriaxone Sodium (Rocephin Iv 1 Gm Duplex) 50 mls @ 100 mls/hr IVPB DAILY [facility] Last Admin: 07/16/17 11:08 Dose: 100 mls/hr Azithromycin 500 mg/ Sodium (Chloride) 250 mls @ 167 mls/hr IVPB Q24H [facility] Last Admin: 07/16/17 12:16 Dose: 167 mls/hr Insulin Aspart (Novolog) 0 unit SC ACHS [facility] PRN Reason: Protocol Last Admin: 07/18/17 21:58 Dose: Not Given Insulin Glargine (Lantus) 6 unit SC HS [facility] Last Admin: 07/18/17 21:57 Dose: 6 u Lisinopril (Zestril) 5 mg PO DAILY [facility] Last Admin: 07/18/17 09:59 Dose: 5 mg Pantoprazole Sodium (Protonix Ec Tab) 40 mg PO DAILY [facility] Last Admin: 07/18/17 09:59 Dose: 40 mg Sitagliptin Phosphate (Januvia) 50 mg PO DAILY [facility] - Labs Labs: 07/17/17 07:50 07/17/17 07:50 PT 10.9 SECONDS (9.7-12.2) 07/14/17 18:33 INR 1.0 07/14/17 18:33 APTT 36 SECONDS (21-34) H 07/14/17 18:33 - Constitutional Appears: No Acute Distress - Respiratory Exam Respiratory Exam: Rales (coarse, at bases), NORMAL BREATHING PATTERN - Cardiovascular Exam Cardiovascular Exam: REGULAR RHYTHM - GI/Abdominal Exam GI & Abdominal Exam: Soft. absent: Tenderness Assessment and Plan - Assessment and Plan (Free Text) Assessment: uncontrolled diabetes on lantus and novolog insulin pneumonia patient has poor IV access, now on po zithromax Plan: endocrinology consult for brittle diabetes continue po zithromax follow up with neurology
[2017-07-19 08:10] LABS: POTASSIUM 4.9 mmol/L (3.6-5.2)
[2017-07-19 08:12] LABS: BILIRUBIN,TOTAL 0.4 mg/dL (0.2-1.3); TOTAL PROTEIN 8.1 g/dL (6.3-8.3)
[2017-07-19 08:13] LABS: CALCIUM 9.8 mg/dl (8.6-10.4)
[2017-07-19 08:47] LABS: THYROID STIMULATING HORMONE 4.55 mIU/L (0.46-4.68)
--- NOTE | 2017-07-19 08:55 | CON ---
ENDOCRINOLOGY CONSULTATION DATE: LOCATION: Room #358. HISTORY OF PRESENT ILLNESS: This is a 72-year-old female with recent uncontrolled type 2 insulin requiring diabetes presenting here with generalized body weakness with frequent falling episodes and concomitant pneumonia with ongoing IV antibiotics and has been referred now for endocrine evaluation because of episodic bouts of symptomatic hypoglycemia as noted. A single episode occurred today with glucose of 26 mg/dL this afternoon following the initial administration of Lantus given 30 units this morning with NovoLog 10 units simultaneously. Her oral intake has been quite very well as per the nursing staff. PAST MEDICAL HISTORY: As mentioned above. History of type 2 insulin requiring diabetes on a mix dose of Lantus given 20 units twice daily and Januvia 100 mg daily, NovoLog given 12 units t.i.d. before meals as ordered. History of hypertension, dyslipidemia, history of diabetic retinopathy and polyneuropathy. She also had previous cerebrovascular event with lower extremity weakness as noted. There is also history of possible early dementia currently on Aricept medication as noted. There is also underlying generalized anxiety and depression, currently on Seroquel medication as noted. FAMILY HISTORY: Positive for diabetes and hypertension. SOCIAL HISTORY: The patient has supportive family. No known substance use. REVIEW OF SYSTEMS: As per the family, she has had recent bouts of increasing lapses of forgetfulness and confusion and disorientation with supervening generalized body weakness and progressive bouts of dizziness and lightheadedness worse on the day of admission. Her energy level is suboptimal as per the family. No chest pains or palpitations, but admits to episodic bouts of shortness of breath, especially on exertion. ; she also has recent productive cough with pleuritic chest pain especially on the right side of the chest area. Her oral intake is variable with nausea, dyspepsia, and vague upper abdominal pain. Denies any recent alterations of bowel and urinary patterns. PHYSICAL EXAMINATION: GENERAL: This is an average-built female in no apparent distress. VITAL SIGNS: Blood pressure 170/90, pulse of 100 beats per minute and regular, temperature 98, respirations 20, height is 5 feet 4 inches, and weight is 120 pounds. HEENT: Head is normocephalic. Eyes; anicteric with pink conjunctivae. Funduscopy not possible at this time. Ears, nose, and throat are otherwise normal. NECK: Supple. Thyroid gland is normal size. No carotid bruits. No cervical adenopathy. CARDIOPULMONARY: Adynamic precordium. S1 and S2 is rapid and regular. LUNGS: Clear to auscultation. ABDOMEN: Flat and soft with positive bowel sounds. EXTREMITIES: No peripheral edema. Pulses are +2 bilaterally. LABORATORY DATA: The glucose level today is 26 with repeat level of 56 and subsequent glucose values are 241-255 mg/dL. Her chemistry showed the BUN of 20, sodium 141, potassium 4.4, chloride 101, CO2 of 25, glucose 238 and creatinine 1.2. ASSESSMENT: This is a 72-year-old female with recent uncontrolled type 2 insulin requiring diabetes presenting here with extremes of glycemic fluctuations and concomitant acute pneumonitis with ongoing IV antibiotic management as given. She also has diabetic microvascular complications of retinopathy, polyneuropathy and early nephropathy. Moreover, she has diabetic microvascular complications of cerebrovascular disease and coronary artery disease as noted. PLAN OF MANAGEMENT: As discussed with the patient and staff. We will modified her current insulin regimen and switch over to rapid acting NovoLog coverage scale with low dose algorithm as ordered. We will eventually need a preprandial NovoLog 6 dose at the very small dosing regimen as indicated. We will add Lantus at the low dose of 6 units subcu at bedtime daily to start tonight. We will titrate incrementally as indicated to optimize metabolic control. We will also add Januvia given 50 mg once daily in the morning as ordered. We will obtain serial chemistries and supplement accordingly as needed. We will follow and advice accordingly. Marcela Shelby MD
[2017-07-19] MEDS: Pantoprazole 40 mg EC Tab PO SCH (09:10)
--- NOTE | 2017-07-19 18:38 | PN ---
ENDO FOLLOWUP NOTE LOCATION: Room 358. This is a 72-year-old female with recent uncontrolled type 2 insulin-requiring diabetes mellitus followed closely for metabolic management. She also has had extreme euglycemic fluctuation with variability of her oral intake as noted there. Her glucose levels today have ranged from 226 to 382 mg/dL. Her latest chemistries showed a BUN of 22, protein 1421, potassium 4.9, chloride 98, CO2 of 28, glucose 170, and creatinine 1.5. So at this time, we will modify once again her basal and bolus insulin regimen and add Novolog given at 6 units subcu t.i.d. before meals to start at dinnertime today as ordered. We will also continue the low-dose correction scale using NovoLog insulin as ordered. More over, we will titrate and increase her Lantus to 12 units subcu at bedtime daily starting to night. We will titrate incrementally as indicated to optimize metabolic control. We will obtain serial chemistries and supplement accordingly as needed. We will follow with you. Marcela Shelby MD
[2017-07-19] MEDS ORDERED: (Lantus) Insulin Glargine, Recombinant SC SCH (22:00)
--- NOTE | 2017-07-19 22:01 | CARD ---
APPROVED REPORT EKG Measurement Heart [id number] <Conclusion> Sinus rhythm with 1st degree AV block Possible Anterior infarct, age undetermined Abnormal ECG
[2017-07-20] MEDS: (Novolog) Insulin Aspart, Recombinant 100 u/ml 10 ml vial SC SCH ×6 (07:54→18:22)
--- NOTE | 2017-07-20 08:41 | CP.PCM.PN ---
Subjective - Date & Time of Evaluation Date of Evaluation: 07/20/17 Time of Evaluation: 08:39 - Subjective Subjective: feels better no dizziness no pain Objective - Vital Signs/Intake and Output Vital Signs (last 24 hours): Temp Pulse Resp BP Pulse Ox 98.5 F 85 20 134/71 96 07/20/17 07:00 07/20/17 07:00 07/20/17 07:00 07/20/17 07:00 07/20/17 07:00 Intake and Output: 07/20/17 07/20/17 06:59 18:59 Intake Total 200 Balance 200 - Medications Medications: Current Medications Albuterol/Ipratropium (Duoneb 3 Mg/0.5 Mg (3 Ml) Ud) 3 ml INH RQ6 PRN PRN Reason: Shortness of Breath Amlodipine Besylate (Norvasc) 5 mg PO DAILY [facility] Last Admin: 07/19/17 09:11 Dose: 5 mg Azithromycin (Zithromax) 500 mg PO DAILY [facility] Last Admin: 07/19/17 10:45 Dose: 500 mg Donepezil HCl (Aricept) 10 mg PO HS [facility] Last Admin: 07/19/17 21:38 Dose: 10 mg Haloperidol Lactate (Haldol) 2 mg IM ONCE PRN PRN Reason: Agitation Last Admin: 07/17/17 12:38 Dose: 2 mg Ceftriaxone Sodium (Rocephin Iv 1 Gm Duplex) 50 mls @ 100 mls/hr IVPB DAILY [facility] Last Admin: 07/16/17 11:08 Dose: 100 mls/hr Azithromycin 500 mg/ Sodium (Chloride) 250 mls @ 167 mls/hr IVPB Q24H [facility] Last Admin: 07/16/17 12:16 Dose: 167 mls/hr Insulin Aspart (Novolog) 0 unit SC ACHS [facility] PRN Reason: Protocol Last Admin: 07/20/17 07:54 Dose: Not Given Insulin Aspart (Novolog) 6 unit SC AC [facility] Last Admin: 07/20/17 08:21 Dose: 6 unit Insulin Glargine (Lantus) 12 unit SC HS [facility] Last Admin: 07/19/17 21:38 Dose: 12 u Lisinopril (Zestril) 5 mg PO DAILY [facility] Last Admin: 07/19/17 09:10 Dose: 5 mg Pantoprazole Sodium (Protonix Ec Tab) 40 mg PO DAILY [facility] Last Admin: 07/19/17 09:10 Dose: 40 mg Sitagliptin Phosphate (Januvia) 50 mg PO DAILY [facility] Last Admin: 07/19/17 09:10 Dose: 50 mg - Labs Labs: 07/19/17 07:47 07/19/17 07:47 PT 10.9 SECONDS (9.7-12.2) 07/14/17 18:33 INR 1.0 07/14/17 18:33 APTT 36 SECONDS (21-34) H 07/14/17 18:33 - Constitutional Appears: No Acute Distress - Neck Exam Neck Exam: absent: Meningismus - Respiratory Exam Respiratory Exam: Rales (bilateral coarse), NORMAL BREATHING PATTERN - Cardiovascular Exam Cardiovascular Exam: REGULAR RHYTHM. absent: Murmur - GI/Abdominal Exam GI & Abdominal Exam: Soft, Normal Bowel Sounds. absent: Tenderness Assessment and Plan - Assessment and Plan (Free Text) Assessment: a 72 year old female lung fibrosis, bronchiectasis DM uncontrolled pneumonia Plan: continue antibiotics PT D/C planning
[2017-07-20] MEDS: Pantoprazole 40 mg EC Tab PO SCH (10:01)
--- NOTE | 2017-07-20 10:37 | EEG ---
DATE: 07/19/2017 This is a 16-channel electroencephalogram of awake and drowsy adult. During the study, photic stimulation was performed. Hyperventilation was not performed. The resting electroencephalogram consists of 30 to 40 microvolt, diffuse 5 to 7 Hz theta activities seen at parietal and occipital leads. Some movement artifact and muscle artifact contaminated the background rhythm. At times, the background activities shows higher amplitude low alpha activities noted. Some eye movement artifact contaminated the background rhythm. The photic stimulation did not evoke driving response noted at 2 to 20 Hz. IMPRESSION: This is a normal electroencephalogram of awake and drowsy adult. During the study, neither electroencephalographic paroxysmal activities nor focal slowing noted. Real Montgomery MD
[2017-07-20 16:01] VITALS: BP 137/70; PULSE 86; TEMP 97.7; O2SAT 98
--- NOTE | 2017-07-20 17:12 | CP.PCM.PN ---
Subjective - Date & Time of Evaluation Date of Evaluation: 07/20/17 Time of Evaluation: 17:12 - Subjective Subjective: Awake, alert, no sob or chest pains, no distress. Objective - Vital Signs/Intake and Output Vital Signs (last 24 hours): Temp Pulse Resp BP Pulse Ox 97.7 F 86 20 137/70 98 07/20/17 15:59 07/20/17 15:59 07/20/17 15:59 07/20/17 15:59 07/20/17 15:59 Intake and Output: 07/20/17 07/20/17 06:59 18:59 Intake Total 200 500 Balance 200 500 - Medications Medications: Current Medications Albuterol/Ipratropium (Duoneb 3 Mg/0.5 Mg (3 Ml) Ud) 3 ml INH RQ6 PRN PRN Reason: Shortness of Breath Amlodipine Besylate (Norvasc) 5 mg PO DAILY [facility] Last Admin: 07/20/17 10:02 Dose: 5 mg Azithromycin (Zithromax) 500 mg PO DAILY [facility] Last Admin: 07/20/17 10:02 Dose: 500 mg Donepezil HCl (Aricept) 10 mg PO HS [facility] Last Admin: 07/19/17 21:38 Dose: 10 mg Haloperidol Lactate (Haldol) 2 mg IM ONCE PRN PRN Reason: Agitation Last Admin: 07/17/17 12:38 Dose: 2 mg Ceftriaxone Sodium (Rocephin Iv 1 Gm Duplex) 50 mls @ 100 mls/hr IVPB DAILY [facility] Last Admin: 07/16/17 11:08 Dose: 100 mls/hr Azithromycin 500 mg/ Sodium (Chloride) 250 mls @ 167 mls/hr IVPB Q24H [facility] Last Admin: 07/16/17 12:16 Dose: 167 mls/hr Insulin Aspart (Novolog) 0 unit SC ACHS [facility] PRN Reason: Protocol Last Admin: 07/20/17 12:26 Dose: Not Given Insulin Aspart (Novolog) 8 unit SC AC [facility] Last Admin: 07/20/17 12:56 Dose: 8 unit Insulin Glargine (Lantus) 16 unit SC HS [facility] Lisinopril (Zestril) 5 mg PO DAILY [facility] Last Admin: 07/20/17 10:02 Dose: 5 mg Pantoprazole Sodium (Protonix Ec Tab) 40 mg PO DAILY [facility] Last Admin: 07/20/17 10:01 Dose: 40 mg Sitagliptin Phosphate (Januvia) 50 mg PO DAILY [facility] Last Admin: 07/20/17 10:01 Dose: 50 mg - Labs Labs: 07/19/17 07:47 07/19/17 07:47 PT 10.9 SECONDS (9.7-12.2) 07/14/17 18:33 INR 1.0 07/14/17 18:33 APTT 36 SECONDS (21-34) H 07/14/17 18:33 Assessment and Plan - Assessment and Plan (Free Text) Assessment: Patient is seen and examined. Alert and responsive, denies any pain, no sob or chest pains. Daughter in the room and is happy to bring her home. D/W DR Rizzo , plan to discharge home, advised to follow up in the office in 1 week. Advised to follow up with DR Shelby for insulin adjustments.
[2017-07-20] MEDS ORDERED: (Novolog) Insulin Aspart, Recombinant 100 u/ml 10 ml vial SC STA (18:11)
[2017-07-20] MEDS ORDERED: (Lantus) Insulin Glargine, Recombinant SC SCH (22:00)
--- NOTE | 2017-07-21 09:10 | PN ---
ENDO FOLLOWUP NOTE DATE: LOCATION: Room 358. SUBJECTIVE: This is a 72-year-old female who is presenting with acute pneumonia and altered mental status and is now being followed closely for metabolic management. Her glycemic levels are fluctuating, but much improved at this time and the latest glucose levels have ranged from 214 to 229 mg/dL, was 322 at bedtime at night. The latest chemistry showed a BUN of 22, sodium 141, potassium 4.9, chloride 98, CO2 28, glucose 170, and creatinine 1.5. So, at this time, we will modify once again her basal and embolus insulin regimen and increase the Novolog to 8 units subcu t.i.d. before meals to start today as ordered. We will also increase the Lantus to 16 units subcu at bedtime daily to start tonight. We will titrate incrementally as indicated to optimize metabolic control. We will also continue the low dose correction scale using Novolog insulin as ordered. We will obtain serial chemistries and supplement accordingly as needed. We will follow. Marcela Shelby MD
--- NOTE | 2017-07-22 21:27 | CP.PCM.DIS ---
Provider - Provider Date of Admission: 07/14/17 19:55 Attending physician: Jennifer Rizzo MD Primary care physician: A 72 year old female with DM came for severe general weakness and imbalance of walking. She was admitted for right side lung infiltration. She had acute renal insufficiency. Time Spent in preparation of Discharge (in minutes): 30 Hospital Course - Lab Results Lab Results: Micro Results 07/14/17 18:45 Blood Blood Culture - Final NO GROWTH AFTER 5 DAYS 07/14/17 18:45 Blood Gram Stain - Final TEST NOT PERFORMED 07/14/17 18:15 Blood Blood Culture - Final NO GROWTH AFTER 5 DAYS 07/14/17 18:15 Blood Gram Stain - Final TEST NOT PERFORMED 07/14/17 19:51 Urine Urine Culture - Final <10,000 CFU/ML. MULTIPLE SPECIES. PROBABLE CONTAMINATION. Most Recent Lab Values WBC 11.1 K/uL (4.8-10.8) H 07/19/17 07:47 RBC 4.27 Mil/uL (3.80-5.20) 07/19/17 07:47 Hgb 11.9 g/dL (11.0-16.0) 07/19/17 07:47 Hct 36.4 % (34.0-47.0) 07/19/17 07:47 MCV 85.3 fL (81.0-99.0) 07/19/17 07:47 MCH 27.9 pg (27.0-31.0) 07/19/17 07:47 MCHC 32.7 g/dL (33.0-37.0) L 07/19/17 07:47 RDW 13.5 % (11.5-14.5) 07/19/17 07:47 Plt Count 288 K/uL (130-400) 07/19/17 07:47 MPV 9.4 fL (7.2-11.7) 07/19/17 07:47 Neut % (Auto) 59.9 % (50.0-75.0) 07/19/17 07:47 Lymph % (Auto) 26.3 % (20.0-40.0) 07/19/17 07:47 Logan % (Auto) 8.0 % (0.0-10.0) 07/19/17 07:47 Eos % (Auto) 5.1 % (0.0-4.0) H 07/19/17 07:47 Baso % (Auto) 0.7 % (0.0-2.0) 07/19/17 07:47 Neut # 6.6 K/uL (1.8-7.0) 07/19/17 07:47 Lymph # 2.9 K/uL (1.0-4.3) 07/19/17 07:47 Logan # 0.9 K/uL (0.0-0.8) H 07/19/17 07:47 Eos # 0.6 K/uL (0.0-0.7) 07/19/17 07:47 Baso # 0.1 K/uL (0.0-0.2) 07/19/17 07:47 PT 10.9 SECONDS (9.7-12.2) 07/14/17 18:33 INR 1.0 07/14/17 18:33 APTT 36 SECONDS (21-34) H 07/14/17 18:33 pO2 36 mm/Hg (30-55) 07/14/17 21:20 VBG pH 7.34 (7.32-7.43) 07/14/17 21:20 VBG pCO2 38 mmHg (40-60) L 07/14/17 21:20 VBG HCO3 20.3 mmol/L 07/14/17 21:20 VBG Total CO2 21.7 mmol/L (22-28) L 07/14/17 21:20 VBG O2 Sat (Calc) 75.1 % (40-65) H 07/14/17 21:20 VBG Base Excess -4.8 mmol/L (0.0-2.0) L 07/14/17 21:20 VBG Potassium 4.5 mmol/L (3.6-5.2) 07/14/17 21:20 Sodium 142.0 mmol/l (132-148) 07/14/17 21:20 Chloride 116.0 mmol/L (98-107) H 07/14/17 21:20 Glucose 236 mg/dl (65-105) H 07/14/17 21:20 Lactate 0.8 mmol/L (0.7-2.1) 07/14/17 21:20 Sodium 141 mmol/L (132-148) 07/19/17 07:47 Potassium 4.9 mmol/L (3.6-5.2) 07/19/17 07:47 Chloride 98 mmol/L (98-107) 07/19/17 07:47 Carbon Dioxide 28 mmol/L (22-30) 07/19/17 07:47 Anion Gap 20 (10-20) 07/19/17 07:47 BUN 22 mg/dL (7-17) H 07/19/17 07:47 Creatinine 1.5 MG/DL (0.7-1.2) H 07/19/17 07:47 Est GFR ( Amer) 41 07/19/17 07:47 Est GFR (Non-Af Amer) 34 07/19/17 07:47 POC Glucose (mg/dL) 77 mg/dL (65-110) 07/20/17 17:18 Random Glucose 170 mg/dL (65-105) H 07/19/17 07:47 Hemoglobin A1c 9.8 % (4.2-6.5) H D 07/15/17 07:48 Calcium 9.8 mg/dl (8.6-10.4) 07/19/17 07:47 Phosphorus 3.7 mg/dL (2.5-4.5) 07/14/17 18:33 Magnesium 2.0 mg/dL (1.6-2.3) 07/14/17 18:33 Total Bilirubin 0.4 mg/dL (0.2-1.3) 07/19/17 07:47 AST 39 U/L (14-36) H D 07/19/17 07:47 ALT 33 U/L (9-52) 07/19/17 07:47 Alkaline Phosphatase 98 U/L (38-126) 07/19/17 07:47 Ammonia 13 umol/L (9-33) 07/16/17 19:53 NT-Pro-B Natriuret Pep 370 pg/mL (0-900) 07/16/17 08:41 Total Protein 8.1 g/dL (6.3-8.3) 07/19/17 07:47 Albumin 4.0 g/dL (3.5-5.0) 07/19/17 07:47 Globulin 4.0 gm/dL (2.2-3.9) H 07/19/17 07:47 Albumin/Globulin Ratio 1.0 (1.0-2.1) 07/19/17 07:47 Lipase 104 U/L (23-300) 07/15/17 07:48 25-OH Vitamin D Total 17.1 NG/ML (30.0-100.0) L 07/19/17 07:47 Thyroxine (T4) 11.0 ug/dL (5.5-11.0) 07/19/17 07:47 TSH 3rd Generation 4.55 mIU/L (0.46-4.68) 07/19/17 07:47 Venous Blood Potassium 4.5 mmol/L (3.6-5.2) 07/14/17 21:20 Urine Color Yellow (YELLOW) 07/14/17 19:41 Urine Clarity Clear (Clear) 07/14/17 19:41 Urine pH 5.0 (5.0-8.0) 07/14/17 19:41 Ur Specific [place] 1.011 (1.003-1.030) 07/14/17 19:41 Urine Protein 1+ mg/dL (NEGATIVE) H 07/14/17 19:41 Urine Glucose (UA) 2+ mg/dL (Normal) H 07/14/17 19:41 Urine Ketones Negative mg/dL (NEGATIVE) 07/14/17 19:41 Urine Blood Negative (NEGATIVE) 07/14/17 19:41 Urine Nitrate Negative (NEGATIVE) 07/14/17 19:41 Urine Bilirubin Negative (NEGATIVE) 07/14/17 19:41 Urine Urobilinogen Normal mg/dL (0.2-1.0) 07/14/17 19:41 Ur Leukocyte Esterase Neg [place]/uL (Negative) 07/14/17 19:41 Urine WBC (Auto) 1 /hpf (0-5) 07/14/17 19:41 Urine RBC (Auto) 1 /hpf (0-3) 07/14/17 19:41 Ur Squamous Epith Cells 1 /hpf (0-5) 07/14/17 19:41 Urine Bacteria Rare (<OCC) 07/14/17 19:41 - Hospital Course Hospital Course: she had iv Rocephin and zithromax however, she had mental confusion, she pulled out IV lines. She took po zithromax. During admission the capillary glucose went down to 26. rapid response was called. Endocrine consult was done, the dose of Novolog and lantus was decreased. family wanted to bring her home and declined an offer to be sent to a subacute rehab facility outpatient follow up is needed. acute renal insufficiency was resolved simply by iv fluid. - Date & Time of H&P Date of H&P: 07/22/17 Time of H&P: 21:27 Discharge Exam - Head Exam Head Exam: NORMAL INSPECTION, NORMOCEPHALIC Discharge Plan - Discharge Medications Prescriptions: Azithromycin [Zithromax] 500 mg PO DAILY #3 tablet - Follow Up Plan Condition: STABLE Disposition: HOME/ ROUTINE Instructions: Acute Kidney Injury (DC), Diabetic Neuropathy (DC), Weakness (ED) , Pneumonia (DC), Acute Abdominal Pain (DC), Acute Abdominal Pain (GEN), Altered Mental Status (GEN) Referrals: Marcela Shelby MD [Medical Doctor] - Jennifer Rizzo MD [Staff Provider] -
== END 2017-07-20 20:00 | disposition home or self-care (01) | DRG 193 ==
LOC: C.ER 17:19 → C.9E 19:55 → C.3T 22:28
PROVIDERS: ADMIT Internal Medicine; ATTEND Internal Medicine
PROC: 02HV33Z Insertion of Infusion Device into Superior Vena Cava, Percutaneous Approach (ICD-10-PCS; principal; 2017-07-16)
DX: J18.9 Pneumonia, unspecified organism (principal); G93.41 Metabolic encephalopathy; J47.0 Bronchiectasis with acute lower respiratory infection; J84.10 Pulmonary fibrosis, unspecified; F03.90 Unspecified dementia, unspecified severity, without behavioral disturbance, psychotic disturbance, mood disturbance, and anxiety; E11.65 Type 2 diabetes mellitus with hyperglycemia; E11.42 Type 2 diabetes mellitus with diabetic polyneuropathy; I10 Essential (primary) hypertension; E78.00 Pure hypercholesterolemia, unspecified; E11.649 Type 2 diabetes mellitus with hypoglycemia without coma; E11.319 Type 2 diabetes mellitus with unspecified diabetic retinopathy without macular edema; N28.9 Disorder of kidney and ureter, unspecified; Z79.4 Long term (current) use of insulin; Z86.73 Personal history of transient ischemic attack (TIA), and cerebral infarction without residual deficits